=== PATIENT | female | born 1990 | race Caucasian/White ===

== ENCOUNTER 2017-11-28 14:55 | Inpatient (IN) | payer MEDICAID, OTHER, SELFPAY ==
[2017-11-28 16:41] LABS: BASO % 0.3 % (0.0-1.0); EOS % 0.5 % (0.0-3.0); HEMATOCRIT 32.1 % (36.0-47.0); HEMOGLOBIN 10.7 g/dl (12.0-15.5); IMMATURE GRANULOCYTE % 4.9 % (0-3.0); LYMPH # 0.7 10^3/uL (1.5-6.5); LYMPH % 16.6 % (24.0-44.0); MEAN CORPUSCULAR HGB CONC 33.3 g/dl (32.0-36.5); MEAN CORPUSCULAR VOLUME 101.9 fl (80.0-96.0); MONO % 24.8 % (0.0-5.0); NEUTROPHILS # 2.1 10^3/uL (1.8-7.7); NEUTROPHILS % 52.9 % (36.0-66.0); PLATELET COUNT, AUTOMATED 151 10^3/uL (150-450); RED BLOOD COUNT 3.15 10^6/uL (4.00-5.40); WHITE BLOOD COUNT 3.9 10^3/uL (4.0-10.0)
[2017-11-28 16:52] LABS: INR 1.18; PARTIAL THROMBOPLASTIN TIME 40.5 SECONDS (25.4-37.6); PROTHROMBIN TIME 15.2 SECONDS (12.1-14.4)
[2017-11-28 16:54] LABS: ALKALINE PHOSPHATASE 73 U/L (45-117); ALT/SGPT 14 U/L (12-78); AMYLASE 21 U/L (25-115); ANION GAP 11 MEQ/L (8-16); AST/SGOT 15 U/L (7-37); BILIRUBIN,DIRECT 0.2 MG/DL (0.0-0.2); BILIRUBIN,TOTAL 0.6 MG/DL (0.2-1.0); BLOOD UREA NITROGEN 11 MG/DL (7-18); CALCIUM LEVEL 8.2 MG/DL (8.5-10.1); CARBON DIOXIDE LEVEL 23 MEQ/L (21-32); CHLORIDE LEVEL 98 MEQ/L (98-107); CREATININE FOR GFR 0.82 MG/DL (0.55-1.30); GLOMERULAR FILTRATION RATE > 60.0 (>60); GLUCOSE, FASTING 102 MG/DL (70-100); LIPASE 84 U/L (73-393); POTASSIUM SERUM 3.2 MEQ/L (3.5-5.1); SODIUM LEVEL 132 MEQ/L (136-145)
[2017-11-28] MEDS: NS 1,000 ML IV ×2 (17:07→18:13)
[2017-11-28] MEDS ORDERED: ISOVUE-370 76% 100ML VIAL (Q9967) As Ordered (17:08)
[2017-11-28] MEDS: ACETAMINOPHEN TAB 650MG DOSE (2X325MG) PO (17:08)
[2017-11-28 17:42] LABS: LACTIC ACID SEPSIS PROTOCOL 1.5 MMOL/L (0.4-2.0)
[2017-11-28 18:00] LABS: KETONE, URINE AUTO RFX 1+ mg/dL (NEGATIVE); MUCUS, URINE RFX SMALL (NEGATIVE); RBC, URINE AUTO RFX 9 /HPF (0-3); SPECIFIC GRAVITY UR AUTO RFX 1.005 (1.002-1.035); SQUAM EPITHELIAL CELL UR AURFX 2 /HPF (0-6)
[2017-11-28 18:01] LABS: LEUKOCYTE ESTERASE UR AUTO RFX 3+ (NEGATIVE); NITRITE, URINE AUTO RFX POSITIVE (NEGATIVE); WBC, URINE AUTO RFX 46 /HPF (0-3)
[2017-11-28] MEDS: ONDANSETRON 4MG/2ML VIAL (J2405) IV (18:13)
[2017-11-28] MEDS: POTASSIUM CHLORIDE 10 MEQ SR TABLET PO (18:17)
[2017-11-28] MEDS: cefTRIAXone SOD 1 GM in D5W MINI-BAG PLUS 50 ML IV (18:25)
[2017-11-28] MEDS: KETOROLAC 30 MG/ML VIAL (J1885) IV (21:00)
[2017-11-29] MEDS: ACETAMINOPHEN TAB 650MG DOSE (2X325MG) PO ×3 (03:37→20:06)
[2017-11-29] MEDS: NS 1,000 ML IV ×6 (04:49→22:52)
[2017-11-29 06:47] LABS: HEMATOCRIT 25.4 % (36.0-47.0); MEAN CORPUSCULAR HEMOGLOBIN 34.1 pg (27.0-33.0); MEAN CORPUSCULAR HGB CONC 33.1 g/dl (32.0-36.5); MEAN CORPUSCULAR VOLUME 103.3 fl (80.0-96.0); PLATELET COUNT, AUTOMATED 105 10^3/uL (150-450); RED BLOOD COUNT 2.46 10^6/uL (4.00-5.40); RED CELL DISTRIBUTION WIDTH 14.1 % (11.5-14.5); WHITE BLOOD COUNT 2.4 10^3/uL (4.0-10.0)
[2017-11-29 06:59] LABS: POS COUNT POS FLAG; POSITIVE MORPH POS FLAG
[2017-11-29 07:02] LABS: ADD MANUAL DIFFER YES; DIFF SLIDE NUMBER 66; HEMOGLOBIN 8.4 g/dl (12.0-15.5)
[2017-11-29 07:15] LABS: ANION GAP 7 MEQ/L (8-16); BLOOD UREA NITROGEN 8 MG/DL (7-18); CALCIUM LEVEL 6.9 MG/DL (8.5-10.1); CARBON DIOXIDE LEVEL 22 MEQ/L (21-32); CHLORIDE LEVEL 108 MEQ/L (98-107); CREATININE FOR GFR 0.67 MG/DL (0.55-1.30); GLOMERULAR FILTRATION RATE > 60.0 (>60); GLUCOSE, FASTING 119 MG/DL (70-100); POTASSIUM SERUM 3.5 MEQ/L (3.5-5.1); SODIUM LEVEL 137 MEQ/L (136-145)
[2017-11-29 07:49] LABS: ANISOCYTOSIS 1+; ATYPICAL LYMPH 2 % (0-5); BANDS 5 % (< 11); LYMPHOCYTES 29 % (16-52); MONOCYTES 1 % (0-8); MYELOCYTES 1 % (0-0); NEUTROPHILS 62 % (35-75); PLATELET ESTIMATE DECREASED (NORMAL)
[2017-11-29 08:45] LABS: RETIC HEMOGLOBIN EQUIVALENT 28.6 pg (24-36); RETICULOCYTE # 21.7 10^9/L (17-77); RETICULOCYTE % 0.9 % (0.5-1.5)
[2017-11-29 08:52] LABS: ESTIMATED AVERAGE GLUCOSE 91 MG/DL (60-110); HEMOGLOBIN A1c 4.8 %
[2017-11-29 09:02] LABS: FERRITIN 230 NG/ML (8-252); IRON (FE) 6 UG/DL (50-170); PERCENT SATURATION 4.1 % (13.2-45.0); TOTAL IRON BINDING CAPACITY 147 UG/DL (250-450)
[2017-11-29] MEDS: PIPERACILLIN/TAZOBACTAM SOD 3.375 GM in D5W MINI-BAG PLUS 50 ML IV ×3 (09:03→20:07)
[2017-11-29] MEDS: TAMSULOSIN 0.4 MG CAP PO (09:03)
[2017-11-29] MEDS: ENOXAPARIN 40 MG/0.4 ML SYRINGE (J1650) SC (09:03)
[2017-11-29] MEDS: PHENAZOPYRIDINE 100 MG TAB PO ×3 (09:03→20:06)
[2017-11-29 09:13] LABS: CONTROL LINE HCG INT CTR LINE PRESENT; HCG, SERUM QUALITATIVE NEGATIVE (NEGATIVE)
[2017-11-29] MEDS: FERROUS SULFATE 325MG TAB PO ×2 (12:18→20:06)
[2017-11-29 13:48] LABS: HEMATOCRIT 26.1 % (36.0-47.0); HEMOGLOBIN 8.4 g/dl (12.0-15.5); MEAN CORPUSCULAR HEMOGLOBIN 33.7 pg (27.0-33.0); MEAN CORPUSCULAR HGB CONC 32.2 g/dl (32.0-36.5); MEAN CORPUSCULAR VOLUME 104.8 fl (80.0-96.0); PLATELET COUNT, AUTOMATED 104 10^3/uL (150-450); RED BLOOD COUNT 2.49 10^6/uL (4.00-5.40); RED CELL DISTRIBUTION WIDTH 14.3 % (11.5-14.5); WHITE BLOOD COUNT 2.8 10^3/uL (4.0-10.0)
[2017-11-29 13:54] LABS: ADD MANUAL DIFFER YES; DIFF SLIDE NUMBER 93; POS COUNT POS FLAG; POSITIVE MORPH POS FLAG
[2017-11-29 14:17] LABS: ATYPICAL LYMPH 2 % (0-5); BANDS 5 % (< 11); LYMPHOCYTES 39 % (16-52); METAMYELOCYTES 1 % (0-0); MONOCYTES 17 % (0-8); NEUTROPHILS 36 % (35-75); PLATELET ESTIMATE DECREASED (NORMAL)
[2017-11-29 14:18] LABS: ANION GAP 9 MEQ/L (8-16); BLOOD UREA NITROGEN 5 MG/DL (7-18); CARBON DIOXIDE LEVEL 23 MEQ/L (21-32); CHLORIDE LEVEL 106 MEQ/L (98-107); CREATININE FOR GFR 0.75 MG/DL (0.55-1.30); GLOMERULAR FILTRATION RATE > 60.0 (>60); GLUCOSE, FASTING 132 MG/DL (70-100); POTASSIUM SERUM 3.9 MEQ/L (3.5-5.1); SODIUM LEVEL 138 MEQ/L (136-145)
[2017-11-29 14:19] LABS: POLYCHROMASIA 1+
[2017-11-29] MEDS ORDERED: cefTRIAXone SOD 1 GM in D5W MINI-BAG PLUS 50 ML IV (18:00)
[2017-11-30] MEDS: PIPERACILLIN/TAZOBACTAM SOD 3.375 GM in D5W MINI-BAG PLUS 50 ML IV ×4 (02:29→20:39)
[2017-11-30] MEDS: NS 1,000 ML IV ×4 (04:39→20:39)
[2017-11-30] MEDS: ACETAMINOPHEN TAB 650MG DOSE (2X325MG) PO ×2 (06:57→15:39)
[2017-11-30 07:19] LABS: HEMATOCRIT 23.4 % (36.0-47.0); HEMOGLOBIN 7.7 g/dl (12.0-15.5); IMMATURE GRANULOCYTE % 0.8 % (0-3.0); LYMPH # 1.1 10^3/uL (1.5-6.5); LYMPH % 44.4 % (24.0-44.0); MEAN CORPUSCULAR HEMOGLOBIN 33.2 pg (27.0-33.0); MEAN CORPUSCULAR HGB CONC 32.9 g/dl (32.0-36.5); MEAN CORPUSCULAR VOLUME 100.9 fl (80.0-96.0); MONO # 0.6 10^3/uL (0.0-0.8); MONO % 24.3 % (0.0-5.0); NEUTROPHILS % 30.5 % (36.0-66.0); PLATELET COUNT, AUTOMATED 100 10^3/uL (150-450); RED BLOOD COUNT 2.32 10^6/uL (4.00-5.40); RED CELL DISTRIBUTION WIDTH 14.1 % (11.5-14.5); WHITE BLOOD COUNT 2.4 10^3/uL (4.0-10.0)
[2017-11-30 07:44] LABS: NEUTROPHILS # 0.7 10^3/uL (1.8-7.7); POSITIVE DIFF POS FLAG
[2017-11-30 07:46] LABS: ANION GAP 7 MEQ/L (8-16); BLOOD UREA NITROGEN 2 MG/DL (7-18); CALCIUM LEVEL 7.4 MG/DL (8.5-10.1); CARBON DIOXIDE LEVEL 23 MEQ/L (21-32); CHLORIDE LEVEL 109 MEQ/L (98-107); CREATININE FOR GFR 0.57 MG/DL (0.55-1.30); GLOMERULAR FILTRATION RATE > 60.0 (>60); GLUCOSE, FASTING 93 MG/DL (70-100); SODIUM LEVEL 139 MEQ/L (136-145)
[2017-11-30 08:28] LABS: IONIZED CALCIUM 4.1 MG/DL (4.5-5.3)
[2017-11-30] MEDS: POTASSIUM CHLORIDE 10 MEQ SR TABLET PO ×2 (09:22→12:12)
[2017-11-30] MEDS: FERROUS SULFATE 325MG TAB PO ×2 (09:23→20:39)
[2017-11-30] MEDS: ENOXAPARIN 40 MG/0.4 ML SYRINGE (J1650) SC (09:23)
[2017-11-30] MEDS: PHENAZOPYRIDINE 100 MG TAB PO ×3 (09:23→20:39)
[2017-11-30] MEDS: TAMSULOSIN 0.4 MG CAP PO (09:34)
[2017-11-30 10:59] LABS: FOLATE 11.9 NG/ML (>5.4)
[2017-12-01] MEDS: PIPERACILLIN/TAZOBACTAM SOD 3.375 GM in D5W MINI-BAG PLUS 50 ML IV (02:38)
[2017-12-01] MEDS: NS 1,000 ML IV ×4 (02:38→22:41)
[2017-12-01 07:12] LABS: HEMATOCRIT 23.9 % (36.0-47.0); HEMOGLOBIN 7.6 g/dl (12.0-15.5); MEAN CORPUSCULAR HEMOGLOBIN 33.8 pg (27.0-33.0); MEAN CORPUSCULAR HGB CONC 31.8 g/dl (32.0-36.5); MEAN CORPUSCULAR VOLUME 106.2 fl (80.0-96.0); PLATELET COUNT, AUTOMATED 105 10^3/uL (150-450); RED BLOOD COUNT 2.25 10^6/uL (4.00-5.40); RED CELL DISTRIBUTION WIDTH 14.5 % (11.5-14.5); WHITE BLOOD COUNT 2.3 10^3/uL (4.0-10.0)
[2017-12-01 07:13] LABS: ADD MANUAL DIFFER YES; DIFF SLIDE NUMBER 39; POSITIVE DIFF POS FLAG; POSITIVE MORPH POS FLAG
[2017-12-01 07:36] LABS: ANION GAP 5 MEQ/L (8-16); BLOOD UREA NITROGEN 3 MG/DL (7-18); C REACTIVE PROTEIN QUANTITATIV 9.46 MG/DL (0.00-0.30); CALCIUM LEVEL 7.6 MG/DL (8.5-10.1); CARBON DIOXIDE LEVEL 25 MEQ/L (21-32); CHLORIDE LEVEL 112 MEQ/L (98-107); CREATININE FOR GFR 0.55 MG/DL (0.55-1.30); GLOMERULAR FILTRATION RATE > 60.0 (>60); GLUCOSE, FASTING 88 MG/DL (70-100); POTASSIUM SERUM 3.7 MEQ/L (3.5-5.1); SODIUM LEVEL 142 MEQ/L (136-145)
[2017-12-01 07:49] LABS: HYPOCHROMASIA 2+; LYMPHOCYTES 57 % (16-52); MONOCYTES 6 % (0-8); NEUTROPHILS 37 % (35-75); PLATELET ESTIMATE NORMAL (NORMAL)
[2017-12-01] MEDS: LevoFLOXacin IV 500 MG in APPROPRIATE DILUENT 1 EA IV (08:00)
[2017-12-01 08:17] LABS: HAPTOGLOBIN 321 mg/dL (34-200)
[2017-12-01] MEDS: ENOXAPARIN 40 MG/0.4 ML SYRINGE (J1650) SC (08:25)
[2017-12-01] MEDS: FERROUS SULFATE 325MG TAB PO ×2 (08:25→21:27)
[2017-12-01] MEDS: MULTIVITAMINS/MINERALS THERAP 1 TAB PO (08:25)
[2017-12-01] MEDS: TAMSULOSIN 0.4 MG CAP PO (08:25)
[2017-12-01] MEDS: ACETAMINOPHEN TAB 650MG DOSE (2X325MG) PO ×3 (08:31→22:40)
[2017-12-01] MEDS: cefTRIAXone SOD 2 GM in D5W MINI-BAG PLUS 50 ML IV (09:04)
[2017-12-01 09:28] LABS: RETIC HEMOGLOBIN EQUIVALENT 28.7 pg (24-36); RETICULOCYTE # 7.8 10^9/L (17-77); RETICULOCYTE % 0.3 % (0.5-1.5)
[2017-12-01 09:29] LABS: REASON FOR REVIEW RBC MORPHOLOGY; SOURCE PERIPHERAL SMEAR
[2017-12-01 09:56] LABS: SLIDE REVIEW Report
[2017-12-01] MEDS: ASCORBIC ACID 250 MG TAB PO ×2 (09:59→21:28)
[2017-12-01 12:17] LABS: HEMATOCRIT 23.9 % (36.0-47.0)
[2017-12-01 13:59] LABS: IMMEDIATE SPIN CROSSMATCH 1 1
[2017-12-01 14:11] LABS: PRETREATED FOLATE FOR RBCFOL 15.3 NG/ML; RBC FOLATE 1344.4 NG/ML (280-791)
[2017-12-02] MEDS: NS 1,000 ML IV (03:44)
[2017-12-02 07:54] LABS: BASO % 0.3 % (0.0-1.0); HEMATOCRIT 28.5 % (36.0-47.0); HEMOGLOBIN 9.1 g/dl (12.0-15.5); IMMATURE GRANULOCYTE % 0.3 % (0-3.0); LYMPH # 1.6 10^3/uL (1.5-6.5); LYMPH % 55.9 % (24.0-44.0); MEAN CORPUSCULAR HEMOGLOBIN 31.9 pg (27.0-33.0); MEAN CORPUSCULAR HGB CONC 31.9 g/dl (32.0-36.5); MONO # 0.4 10^3/uL (0.0-0.8); MONO % 12.2 % (0.0-5.0); NEUTROPHILS % 31.3 % (36.0-66.0); PLATELET COUNT, AUTOMATED 115 10^3/uL (150-450); RED BLOOD COUNT 2.85 10^6/uL (4.00-5.40); RED CELL DISTRIBUTION WIDTH 18.7 % (11.5-14.5); WHITE BLOOD COUNT 2.9 10^3/uL (4.0-10.0)
[2017-12-02 07:59] LABS: ANION GAP 7 MEQ/L (8-16); BLOOD UREA NITROGEN 4 MG/DL (7-18); C REACTIVE PROTEIN QUANTITATIV 5.81 MG/DL (0.00-0.30); CALCIUM LEVEL 7.5 MG/DL (8.5-10.1); CARBON DIOXIDE LEVEL 25 MEQ/L (21-32); CHLORIDE LEVEL 111 MEQ/L (98-107); CREATININE FOR GFR 0.55 MG/DL (0.55-1.30); GLOMERULAR FILTRATION RATE > 60.0 (>60); GLUCOSE, FASTING 81 MG/DL (70-100); POTASSIUM SERUM 3.7 MEQ/L (3.5-5.1); SODIUM LEVEL 143 MEQ/L (136-145)
[2017-12-02 08:15] LABS: NEUTROPHILS # 0.9 10^3/uL (1.8-7.7); POSITIVE DIFF POS FLAG; POSITIVE MORPH POS FLAG
[2017-12-02] MEDS: MULTIVITAMINS/MINERALS THERAP 1 TAB PO (08:50)
[2017-12-02] MEDS: FERROUS SULFATE 325MG TAB PO ×2 (08:50→19:52)
[2017-12-02] MEDS: TAMSULOSIN 0.4 MG CAP PO (08:50)
[2017-12-02] MEDS: ENOXAPARIN 40 MG/0.4 ML SYRINGE (J1650) SC (08:51)
[2017-12-02] MEDS ORDERED: BENZONATATE 100 MG CAP PO (09:30)
[2017-12-02] MEDS: cefTRIAXone SOD 2 GM in D5W MINI-BAG PLUS 50 ML IV (09:42)
[2017-12-02] MEDS: ONDANSETRON 4MG/2ML VIAL (J2405) IV (09:54)
[2017-12-02] MEDS: ASCORBIC ACID 250 MG TAB PO ×2 (10:52→19:52)
[2017-12-02] MEDS: ACETAMINOPHEN TAB 650MG DOSE (2X325MG) PO (12:55)
[2017-12-02] MEDS: SLF 3 ML SYR IV ×2 (12:55→19:52)
[2017-12-03] MEDS: ACETAMINOPHEN TAB 650MG DOSE (2X325MG) PO (05:42)
[2017-12-03] MEDS: SLF 3 ML SYR IV ×2 (05:43→08:47)
[2017-12-03 07:28] LABS: HEMATOCRIT 33.2 % (36.0-47.0); MEAN CORPUSCULAR HEMOGLOBIN 32.3 pg (27.0-33.0); MEAN CORPUSCULAR HGB CONC 33.1 g/dl (32.0-36.5); MEAN CORPUSCULAR VOLUME 97.4 fl (80.0-96.0); PLATELET COUNT, AUTOMATED 165 10^3/uL (150-450); RED BLOOD COUNT 3.41 10^6/uL (4.00-5.40); WHITE BLOOD COUNT 3.4 10^3/uL (4.0-10.0)
[2017-12-03 07:34] LABS: POSITIVE MORPH POS FLAG
[2017-12-03 07:35] LABS: ADD MANUAL DIFFER YES; DIFF SLIDE NUMBER 27
[2017-12-03 07:57] LABS: ANION GAP 5 MEQ/L (8-16); BLOOD UREA NITROGEN 9 MG/DL (7-18); C REACTIVE PROTEIN QUANTITATIV 4.11 MG/DL (0.00-0.30); CALCIUM LEVEL 8.6 MG/DL (8.5-10.1); CARBON DIOXIDE LEVEL 30 MEQ/L (21-32); CHLORIDE LEVEL 104 MEQ/L (98-107); CREATININE FOR GFR 0.71 MG/DL (0.55-1.30); GLOMERULAR FILTRATION RATE > 60.0 (>60); GLUCOSE, FASTING 91 MG/DL (70-100); POTASSIUM SERUM 3.7 MEQ/L (3.5-5.1); SODIUM LEVEL 139 MEQ/L (136-145)
[2017-12-03 08:04] LABS: ATYPICAL LYMPH 3 % (0-5); BASOPHILS 1 % (0-4); LYMPHOCYTES 32 % (16-52); MONOCYTES 14 % (0-8); NEUTROPHILS 50 % (35-75); PLATELET ESTIMATE NORMAL (NORMAL)
[2017-12-03 08:06] LABS: ANISOCYTOSIS 2+
[2017-12-03] MEDS: ENOXAPARIN 40 MG/0.4 ML SYRINGE (J1650) SC (08:43)
[2017-12-03] MEDS: ASCORBIC ACID 250 MG TAB PO (08:44)
[2017-12-03] MEDS: TAMSULOSIN 0.4 MG CAP PO (08:44)
[2017-12-03] MEDS: FERROUS SULFATE 325MG TAB PO (08:44)
[2017-12-03] MEDS: MULTIVITAMINS/MINERALS THERAP 1 TAB PO (08:44)
[2017-12-03] MEDS: CEFDINIR 300 MG CAP (OMNICEF) PO (08:44)
[2017-12-03] MEDS: ONDANSETRON 4MG/2ML VIAL (J2405) IV (08:46)
== END 2017-12-03 10:40 | disposition home or self-care (01) | DRG 720 ==
LOC: M ED 14:55 → M ED INP 22:36 → M PED 23:35
PROC: 30233N1 Transfusion of Nonautologous Red Blood Cells into Peripheral Vein, Percutaneous Approach (ICD-10-PCS; principal; 2017-12-01)
DX: A41.9 Sepsis, unspecified organism (principal); D61.9 Aplastic anemia, unspecified; N10 Acute pyelonephritis; D53.9 Nutritional anemia, unspecified; Z79.899 Other long term (current) drug therapy; F17.210 Nicotine dependence, cigarettes, uncomplicated; B96.29 Other Escherichia coli [E. coli] as the cause of diseases classified elsewhere

== ENCOUNTER 2020-04-16 09:07 | Emergency (ER) | payer MEDICAID, OTHER ==
[~2020-04-16] VITALS: Ht 162.6 cm; Wt 52.3 kg
[~2020-04-16 09:07] MED LIST: ASCO250T20 PO; CALC500T61 PO; CEFD300CAP PO; CENTCHW4 PO; FERR1TAB8 PO; REME45TA PO; VITMTA PO
--- OUTSIDE RECORDS SUMMARY | 2020-04-16 09:13 | CCD ---
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 Unavailable Unavailable Ciara Dumont LMSW Unavailable Unavail able Ciara Dumont TANKROOM TENDER Unavailable Unavail able Lima, Huong Unavailable Unavailable Lima, Huong Unavailable Unavailable Lima, Huong Unavailable Unavailable Lima, Huong Unavailable Unavailable Lima, Huong Unavailable Unavailable Alberto, Tavia Unavailable Unavailable Alberto, Tavia Unavailable Unavailable Alberto, Tavia Unavailable Unavailable Alberto, Tavia Unavailable Unavailable ACHUFUSI, G JAIME Unavailable Unavailable Yancy, Alessandra Unavailable Unavailable Yancy, Alessandra Unavailable Unavailable Yancy, Alessandra Unavailable Unavailable Yancy, Alessandra Unavailable Unavailable Yancy, Alessandra Unavailable Unavailable Yancy, Alessandra Unavailable Unavailable MIRANDA MESA MD Unavailable Unavailable MIRANDA MESA MD Unavailable Unavailable MIRANDA MESA MD Unavailable Unavailable MIRANDA MESA MD Unavailable Unavailable MIRANDA MESA MD Unavailable Unavailable MIRANDA MESA MD Unavailable Unavailable MIRANDA MESA MD Unavailable Unavailable MIRANDA MESA MD Unavailable Unavailable MIRANDA MESA MD Unavailable Unavailable MIRANDA MESA MD Unavailable Unavailable MIRANDA MESA MD Unavailable Unavailable MIRANDA MESA MD Unavailable Unavailable MIRANDA MESA MD Unavailable Unavailable MIRANDA MESA MD Unavailable Unavailable MIRANDA MESA MD Unavailable Unavailable MIRANDA MESA MD Unavailable Unavailable MIRANDA MESA MD Unavailable Unavailable MIRANDA MESA MD Unavailable Unavailable MIRANDA MESA MD Unavailable Unavailable MIRANDA MESA MD Unavailable Unavailable MIRANDA MESA MD Unavailable Unavailable MIRANDA MESA MD Unavailable Unavailable MIRANDA MESA MD Unavailable Unavailable MIRANDA MESA MD Unavailable Unavailable MIRANDA MESA MD Unavailable Unavailable MIRANDA MESA MD Unavailable Unavailable MIRANDA MESA MD Unavailable Unavailable MIRANDA MESA MD Unavailable Unavailable MIRANDA MESA MD Unavailable Unavailable MIRANDA MESA MD Unavailable Unavailable MIRANDA MESA MD Unavailable Unavailable MIRANDA MESA MD Unavailable Unavailable MIRANDA MESA MD Unavailable Unavailable MIRANDA MESA MD Unavailable Unavailable MIRANDA MESA MD Unavailable Unavailable MIRANDA MESA MD Unavailable Unavailable MIRANDA MESA MD Unavailable Unavailable MIRANDA MESA MD Unavailable Unavailable MIRANDA MESA MD Unavailable Unavailable MIRANDA MESA MD Unavailable Unavailable MIRANDA MESA MD Unavailable Unavailable MIRANDA MESA MD Unavailable Unavailable MIRANDA MESA MD Unavailable Unavailable MIRANDA MESA MD Unavailable Unavailable MIRANDA MESA MD Unavailable Unavailable MIRANDA MESA MD Unavailable Unavailable MIRANDA MESA MD Unavailable Unavailable MIRANDA MESA MD Unavailable Unavailable MIRANDA MESA MD Unavailable Unavailable MIRANDA MESA MD Unavailable Unavailable MIRANDA MESA MD Unavailable Unavailable MIRANDA MESA MD Unavailable Unavailable MIRANDA MESA MD Unavailable Unavailable MIRANDA MESA MD Unavailable Unavailable MIRANDA MESA MD Unavailable Unavailable MIRANDA MESA MD Unavailable Unavailable MIRANDA MESA MD Unavailable Unavailable MIRANDA MESA MD Unavailable Unavailable MIRANDA MESA MD Unavailable Unavailable MIRANDA MESA MD Unavailable Unavailable MIRANDA MESA MD Unavailable Unavailable MIRANDA MESA MD Unavailable Unavailable MIRANDA MESA MD Unavailable Unavailable MIRANDA MESA MD Unavailable Unavailable MIRANDA MESA MD Unavailable Unavailable MIRANDA MESA MD Unavailable Unavailable MIRANDA MESA MD Unavailable Unavailable MIRANDA MESA MD Unavailable Unavailable MIRANDA MESA MD Unavailable Unavailable MIRANDA MESA MD Unavailable Unavailable MIRANDA MESA MD Unavailable Unavailable MIRANDA MESA MD Unavailable Unavailable MIRANDA MESA MD Unavailable Unavailable MIRANDA MESA MD Unavailable Unavailable MIRANDA MESA MD Unavailable Unavailable MIRANDA MESA MD Unavailable Unavailable MIRANDA MESA MD Unavailable Unavailable MIRANDA MESA MD Unavailable Unavailable MIRANDA MESA MD Unavailable Unavailable MIRANDA MESA MD Unavailable Unavailable MIRANDA MESA MD Unavailable Unavailable MIRANDA MESA MD Unavailable Unavailable MIRANDA MESA MD Unavailable Unavailable MIRANDA MESA MD Unavailable Unavailable GRECA, TRICIARIT . Unavailable Unavailable Eleonora LOZANO Unavailable Unavailable CONRAD JORGENSEN Unavailable Unavailable Rico VELAZQUEZ MD Unavailable Unavailable Rico VELAZQUEZ MD Unavailable Unavailable Rico VELAZQUEZ MD Unavailable Unavailable Rico VELAZQUEZ MD Unavailable Unavailable Rico VELAZQUEZ MD Unavailable Unavailable Rico VELAZQUEZ MD Unavailable Unavailable Rico VELAZQUEZ MD Unavailable Unavailable Rico VELAZQUEZ MD Unavailable Unavailable Rico VELAZQUEZ MD Unavailable Unavailable Rico VELAZQUEZ MD Unavailable Unavailable Rico VELAZQUEZ MD Unavailable Unavailable Rico VELAZQUEZ MD Unavailable Unavailable Rico VELAZQUEZ MD Unavailable Unavailable Rico VELAZQUEZ MD Unavailable Unavailable Rico VELAZQUEZ MD Unavailable Unavailable Rico VELAZQUEZ MD Unavailable Unavailable Rico VELAZQUEZ MD Unavailable Unavailable Rico VELAZQUEZ MD Unavailable Unavailable Rico VELAZQUEZ MD Unavailable Unavailable Rico VELAZQUEZ MD Unavailable Unavailable Rico VELAZQUEZ MD Unavailable Unavailable Rico VELAZQUEZ MD Unavailable Unavailable Rico VELAZQUEZ MD Unavailable Unavailable Rico VELAZQUEZ MD Unavailable Unavailable Rico VELAZQUEZ MD Unavailable Unavailable Rico VELAZQUEZ MD Unavailable Unavailable Rico VELAZQUEZ MD Unavailable Unavailable Rico VELAZQUEZ MD Unavailable Unavailable Rico VELAZQUEZ MD Unavailable Unavailable Rico VELAZQUEZ MD Unavailable Unavailable Rico VELAZQUEZ MD Unavailable Unavailable Rico VELAZQUEZ MD Unavailable Unavailable Rico VELAZQUEZ MD Unavailable Unavailable Rico VELAZQUEZ MD Unavailable Unavailable Rico VELAZQUEZ MD Unavailable Unavailable Rico VELAZQUEZ MD Unavailable Unavailable Rico VELAZQUEZ MD Unavailable Unavailable Rico VELAZQUEZ MD Unavailable Unavailable Rico VELAZQUEZ MD Unavailable Unavailable Rico VELAZQUEZ MD Unavailable Unavailable Rico VELAZQUEZ MD Unavailable Unavailable Rico VELAZQUEZ MD Unavailable Unavailable Rico VELAZQUEZ MD Unavailable Unavailable Rico VELAZQUEZ MD Unavailable Unavailable Rico VELAZQUEZ MD Unavailable Unavailable Rico VELAZQUEZ MD Unavailable Unavailable Rico VELAZQUEZ MD Unavailable Unavailable Rico VELAZQUEZ MD Unavailable Unavailable Rico VELAZQUEZ MD Unavailable Unavailable Rico VELAZQUEZ MD Unavailable Unavailable Rico VELAZQUEZ MD Unavailable Unavailable Rico VELAZQUEZ MD Unavailable Unavailable Rico VELAZQUEZ MD Unavailable Unavailable Rico VELAZQUEZ MD Unavailable Unavailable Rico VELAZQUEZ MD Unavailable Unavailable MARCIN MUHAMMAD Unavailable Unavailable JoaquiniesByron christianson Cali Unavailable Unavailable PoiesByron christianson Cali Unavailable Unavailable PoiesByron christianson Cali Unavailable Unavailable PoiesByron christianson Cali Unavailable Unavailable PoiesByron christianson Cali Unavailable Unavailable Poiesmeghan J Cali Unavailable Unavailable Poiesz J Cali Unavailable Unavailable Poiesz J Cali Unavailable Unavailable Poiesz J Cali Unavailable Unavailable Poiesz J Cali Unavailable Unavailable Poiesmeghan J Cali Unavailable Unavailable Poiesz J Cali Unavailable Unavailable Poiesz, J Cali Unavailable Unavailable Poiesz, J Cali Unavailable Unavailable Poiesz, J Cali Unavailable Unavailable Poiesz, J Cali Unavailable Unavailable Poiesz, J Cali Unavailable Unavailable Poiesz, J Cali Unavailable Unavailable Poiesz, J Cali Unavailable Unavailable Poiesz, J Cali Unavailable Unavailable Poiesz, J Cali Unavailable Unavailable Poiesz, J Cali Unavailable Unavailable Poiesz, J Cali Unavailable Unavailable Poiesz, J Cali Unavailable Unavailable Poiesz, J Cali Unavailable Unavailable Poiesz, J Cali Unavailable Unavailable Poiesz, J Cali Unavailable Unavailable Poiesz, J Cali Unavailable Unavailable Poiesz, J Cali Unavailable Unavailable Poiesz, J Cali Unavailable Unavailable Poiesz, J Cali Unavailable Unavailable Poiesz, J Cali Unavailable Unavailable Poiesz, J Cali Unavailable Unavailable Poiesz, J Cali Unavailable Unavailable Poiesz, J Cali Unavailable Unavailable Poiesz, J Cali Unavailable Unavailable Poiesz, J Cali Unavailable Unavailable Poiesz, J Cali Unavailable Unavailable Poiesz, J Cali Unavailable Unavailable Poiesz, J Cali Unavailable Unavailable Poiesz, J Cali Unavailable Unavailable Poiesz, J Cali Unavailable Unavailable Poiesz, J Cali Unavailable Unavailable Poiesz, J Cali Unavailable Unavailable Poiesz, J Cali Unavailable Unavailable Poiesz, J Cali Unavailable Unavailable Poiesz, J Cali Unavailable Unavailable Poiesz, J Cali Unavailable Unavailable Re-disclosure Warning The records that you are about to access may contain information from federally-assisted alcohol or drug abuse programs. If such information is present, then the following federally mandated warning applies: This information has been disclosed to you from records protected by federal confidentiality rules (42 CFR part 2). The federal rules prohibit you from making any further disclosure of this information unless further disclosure is expressly permitted by the written consent of the person to whom it pertains or as otherwise permitted by 42 CFR part 2. A general authorization for the release of medical or other information is NOT sufficient for this purpose. The Federal rules restrict any use of the information to criminally investigate or prosecute any alcohol or drug abuse patient.The records that you are about to access may contain highly sensitive health information, the redisclosure of which is protected by Article 27-F of the [facility] Public Health law. If you continue you may have access to information: Regarding HIV / AIDS; Provided by facilities licensed or operated by the [facility] Office of Mental Health; or Provided by the [facility] Office for People With Developmental Disabilities. If such information is present, then the following [facility] mandated warning applies: This information has been disclosed to you from confidential records which are protected by state law. State law prohibits you from making any further disclosure of this information without the specific written consent of the person to whom it pertains, or as otherwise permitted by law. Any unauthorized further disclosure in violation of state law may result in a fine or mcc sentence or both. A general authorization for the release of medical or other information is NOT sufficient authorization for further disc losure. Allergies and Adverse Reactions Type Description Substance Reaction Status Data Source(s ) Drug Class NO KNOWN ALLERGIES NO KNOWN ALLERGIES [facility] Family History Family Member Name Family Member Gender Family Member Status Date o f Status Description Data Source(s) Unknown Unknown Problem [facility] ([facility] Encounters Encounter Providers Location Date Indications Data Source(s ) Outpatient Attender: DARIO MESA MD 05/08/2020 12:00:00 A M [facility] Outpatient Attender: JOSEPH LOZANO 12/12/2019 12:00:00 AM E [facility] Outpatient Attender: JOSEPH LOZANO 11/17/2019 12:00:00 AM E [facility] Outpatient Attender: DARIO MESA MD 11/15/2019 12:00:00 A M [facility] Emergency [id number] 11/10/2019 08:30:00 AM EDT - 020 09:03:00 AM EDT [facility] Patient discharged. Outpatient Attender: DARIO MESA MDReferrer: DARIO MESA MD 10/25/2019 01:43:40 PM EDT Pain in left hip [facility] Pain in left hip Outpatient Attender: DARIO MESA MD [id number] 2019 12:00:00 AM EDT - 10/25/2019 12:00:01 PM EDT Pain in left hip [facility] Pain in left hip Outpatient Attender: LESVIA VELAZQUEZ MDReferrer: LESVIA CASTELLANOS MD 09/20/2019 12:00:00 AM EDT [facility] Outpatient Attender: Huong Sharma: MARCIN MUHAMMAD [id number] 09/16/2019 12:00:00 AM EDT - 09/16/2019 04:26:16 PM EDT Aplastic anemia, unspecified [facility] Aplastic anemia, unspecified Outpatient Attender: DARIO MESA MD 09/13/2019 12:00:00 A M EDT [facility] Outpatient Attender: DARIO MESA MDReferrer: Huong Lima 09/13/2019 12:00:00 AM [facility] Outpatient Attender: Alessandra Haines 08/18/2019 12:00:00 AM ED [facility] Outpatient Attender: Cherry Dumont LMSW [id number] 08/12/2019 10:43:21 AM [facility] Outpatient Attender: Tavia Alberto [id number] 020 12:00:00 AM EDT - 08/11/2019 10:09:52 AM EDT Allergic rhinitis, unspecified [facility] Allergic rhinitis, unspecified Outpatient Attender: CONRAD JORGENSEN [id number] 06/24 12:00:00 AM EDT - 07/21/2019 12:00:00 AM EDT Unspecified abdominal pain [facility] Unspecified abdominal pain Outpatient Attender: CONRAD JORGENSEN [id number] 05/26 12:00:00 AM EDT - 06/23/2019 02:57:29 PM EDT Allergy, unspecified, subsequent encounter [facility] Allergy, unspecified, subsequent encount er Outpatient Attender: JAIME Ivyender: EDDIE HARDIN . 05/11/2019 12:00:00 AM T [facility] Outpatient 05/11/2019 12:00:00 AM [facility] Outpatient Attender: MILAGRO LOPEZ . [id number] 10/2019 12:00:00 AM EDT - 05/02/2019 04:10:51 PM EDT Impacted cerumen, bilateral [facility] Impacted cerumen, bilateral Outpatient Attender: Huong Lima [id number] 03/29/2019 12:00:00 AM EST - 03/29/2019 05:00:45 PM [facility] Outpatient Attender: Cali Monahan 03/24/2019 12:00:00 AM [facility] Outpatient Attender: DARIO MOSHE MDReferrer: Huong Lima 03/09/2019 12:00:00 AM [facility] Immunizations Vaccine Date Status Description Data Source(s) pneumococcal polysaccharide PPV23 09/16/2019 12:00:00 AM EDT com pleted Pneumococcal Polysaccharide PPV23 09/16/2019 [facility] Medications Medication Brand Name Start Date Product Form Dose Route Admi nistrative Instructions Pharmacy Instructions Status Indications Reaction Description Data Source(s) Acetic Acid 20 MG/ML Otic Solution acetic acid (VOSOL) 2 % otic solution acetic acid (VOSOL) 2 % otic solution 11/10/2019 12:00:00 AM EDT 4 [drp] active Administer 4 drops into both ear s 4 (four) times a day [facility] 24 HR Fexofenadine hydrochloride 180 MG / Pseudoephedrine Hydrochloride 240 MG Extended Release Oral Tablet Fexofenadine-Pseudoephed ER 180-240 MG Tablet Extended Release 24 Hour (Cl[facility]) Fexofenadine- Pseudoephed ER 180-240 MG Tablet Extended Release 24 Hour ([facility] Cong[facility]) 09/16/2019 12:00:00 AM EDT 1 {tbl} Oral a ctive Allergic rhinitis, unspecified seasonality, unspecified triggerSeasonal allergies Take 1 tablet by mouth daily [facility] Allergic rhinitis, unspecified seasonali ty, unspecified trigger Seasonal allergies Mirtazapine 45 MG Oral Tablet Mirtazapine 45 MG Oral T ablet (REMERON) Mirtazapine 45 MG Oral Tablet (REMERON) 09/16/2019 12:00:00 AM EDT 45 mg Oral active MAGDA (generalized anx iety disorder)Depression, unspecified depression type Take 1 tablet by mouth nightly [facility] MAGDA (generalized anxiety disorder) Depression, unspecified depression type Albuterol Sulfate HFA 108 (90 Base) MCG/ ACT Inhalation Aerosol Solution (PROVENTIL HFA) 1766-9964-64 09/16/2019 12:00:00 AM EDT 2 {puff} Inha lation active Allergic rhinitis, unspecifi ed seasonality, unspecified triggerSeasonal allergies Inhale 2 puffs into the lung s every 4 (four) hours as needed for Shortness of Breath [facility] Allergic rhinitis, unspecified seasonali ty, unspecified trigger Seasonal allergies Folic Acid 1 MG Oral Tablet Folic Acid 1 MG Oral Table t (FOLVITE) Folic Acid 1 MG Oral Tablet (FOLVITE) 09/16/2019 12:00:00 AM EDT 1 mg Oral active Fatigue, unspecified typeMacrocytic anemia Take 1 tablet by mouth daily [facility] Fatigue, unspecified type Macrocytic anemia Multivitamins Oral Capsule [id number] 09/16/2019 12:00:00 AM EDT 1 {capsule} Oral active Fatigue, unspecified type Take 1 capsule by mouth daily [facility] Fatigue, unspecified type ferrous sulfate 325 MG Oral Tablet Ferrous Sulfate 325 (65 Fe) MG Oral Tablet Ferrous Sulfate 325 (65 Fe) MG Oral Tablet 09/16/2019 12:00:00 AM EDT 325 mg Oral active Aplastic anemia Take 1 tablet by mouth Two Times Daily [facility] Aplastic anemia 12 HR cetirizine hydrochloride 5 MG / Ps eudoephedrine Hydrochloride 120 MG Extended Release Oral Tablet Cetirizine-Pseudoephedrine ER 5-120 MG Tablet Extended Release 12 Hour (ZyrTEC-[facility] Allergy & Congestion) Cetirizine- Pseudoephedrine ER 5-120 MG Tablet Extended Release 12 Hour (ZyrTEC-D Allergy & Congestion) 08/12/2019 12:00:00 AM EDT 1 {tbl} Oral a ctive Allergic rhinitis, unspecified seasonality, unspecified trigger Take 1 tablet by mouth Two Times Daily [facility] Allergic rhinitis, unspecified seasonali ty, unspecified trigger 24 HR Nicotine 0.875 MG/HR Transdermal P atch Nicotine 21 MG/24HR Transdermal Patch 24 Hour (NICODERM CQ) Nicotine 21 MG/24HR Transdermal Patch 24 Hour (NICODERM CQ) 08/11/2019 12:00:00 AM EDT 1 {patch} Transdermal active Encounter for smoking cessation counseling Place 1 pat ch onto the skin every 24 (twenty-four) hours [facility] Encounter for smoking cessation counseli ng Azelastine HCl 0.1 % Nasal Solution (ASTELIN) [address]-0 08/11/2019 12:00:00 AM EDT 1 {spray} Nasal active Allergic r hinitis, unspecified seasonality, unspecified triggerSeasonal allergies 1 spray by Nasal route Two Times Daily Use in each nostril as directed [facility] Allergic rhinitis, unspecified seasonali ty, unspecified trigger Seasonal allergies Albuterol Sulfate HFA 108 (90 Base) MCG/ ACT Inhalation Aerosol Solution (PROVENTIL HFA) 7243-8449-76 08/11/2019 12:00:00 AM EDT 2 {puff} Inha lation aborted Allergic rhinitis, unspecifi ed seasonality, unspecified triggerSeasonal allergies Inhale 2 puffs into the lung s every 4 (four) hours as needed for Shortness of Breath [facility] Allergic rhinitis, unspecified seasonali ty, unspecified trigger Seasonal allergies 24 HR Fexofenadine hydrochloride 180 MG / Pseudoephedrine Hydrochloride 240 MG Extended Release Oral Tablet Fexofenadine-Pseudoephed ER 180-240 MG Tablet Extended Release 24 Hour ([facility]) Fexofenadine- Pseudoephed ER 180-240 MG Tablet Extended Release 24 Hour ([facility] Allergy [facility] Congestion) 08/11/2019 12:00:00 AM EDT 1 {tbl} Oral a borted Allergic rhinitis, unspecified seasonality, unspecified triggerSeasonal allergies Take 1 tablet by mouth daily [facility] Allergic rhinitis, unspecified seasonali ty, unspecified trigger Seasonal allergies Levofloxacin 500 MG Oral Tablet levoFLOXacin 500 MG Or al Tablet (LEVAQUIN) levoFLOXacin 500 MG Oral Tablet (LEVAQUIN) 07/20/2019 12:00:00 AM EDT 750 mg Oral active Take 1.5 tablets by mouth daily for 7 days [facility] carbamide peroxide 65 MG/ML Otic Solutio n Carbamide Peroxide 6.5 % Otic Solution (DEBROX) Carbamide Peroxide 6.5 % Otic Solution (DEBROX) 2019 12:00:00 AM EDT 5 [drp] Both Ears active Bilateral impacted cer umen Place 5 drops into both ears Two Times Daily for 7 days [facility] Bilateral impacted cerumen Loratadine 10 MG Oral Tablet Loratadine 10 MG Oral Tab let (CLARITIN) Loratadine 10 MG Oral Tablet (CLARITIN) 05/02/2019 12:00:00 AM EDT 10 mg Oral aborted Seasonal allergies Take 1 tablet by mouth daily [facility] Seasonal allergies Mirtazapine 45 MG Oral Tablet Mirtazapine 45 MG Oral T ablet (REMERON) Mirtazapine 45 MG Oral Tablet (REMERON) 03/29/2019 12:00:00 AM EST 45 mg Oral aborted Depression, unspecified depression type Take 1 tablet by mouth nightly [facility] Depression, unspecified depression type Multivitamins Oral Capsule [id number] 03/29/2019 12:00:00 AM EST 1 {capsule} Oral aborted Fatigue, unspecified type Take 1 capsule by mouth daily [facility] Fatigue, unspecified type Loratadine 10 MG Oral Tablet Loratadine 10 MG Oral Tab let (CLARITIN) Loratadine 10 MG Oral Tablet (CLARITIN) 03/29/2019 12:00:00 AM EST 10 mg Oral aborted Seasonal allergies Take 1 tablet by mouth daily [facility] Seasonal allergies Fluticasone Propionate 50 MCG/ACT Nasal Suspension (FLONASE) 9435-0728-24 03/29/2019 12:00:00 AM EST 1 {spray} Nasal aborted Sea malika allergies 1 spray by Nasal route daily [facility] Seasonal allergies Folic Acid 1 MG Oral Tablet Folic Acid 1 MG Oral Table t (FOLVITE) Folic Acid 1 MG Oral Tablet (FOLVITE) 03/29/2019 12:00:00 AM EST 1 mg Oral aborted Macrocytic anemia Take 1 tablet by mouth daily [facility] Macrocytic anemia Mirtazapine 45 MG Oral Tablet Mirtazapine 45 MG Oral T ablet (REMERON) Mirtazapine 45 MG Oral Tablet (REMERON) 01/31/2019 12:00:00 AM EST 45 mg Oral aborted Depression, unspecified depression type Take 1 tablet by mouth nightly [facility] Depression, unspecified depression type Multiple Vitamin (MULTIVITAMIN) capsule [id number] 11/13/19 19 12:00:00 AM EDT 1 {capsule} Oral aborted Fatigue, unspecified type Take 1 capsule by mouth daily [facility] Fatigue, unspecified type Loratadine 10 MG Oral Tablet loratadine (CLARITIN) 10 MG tablet loratadine (CLARITIN) 10 MG tablet 11/12/2018 12:00:00 AM EDT 10 mg Oral aborted Seasonal allergies Take 1 tablet by mouth daily [facility] Seasonal allergies fluticasone (FLONASE) 50 MCG/ACT nasal spray 5738-7536-09 11/12/2018 12:00:00 AM EDT 1 {spray} Nasal aborted Seasonal allergies 1 spray by Nasal route daily [facility] Seasonal allergies Hydrocortisone 5 MG/ML Topical Cream hydrocortisone 0. 5 % cream hydrocortisone 0.5 % cream 04/27/2018 12:00:00 AM EST Topical a ctive Irritant contact dermatitis due to other agents Apply topically Two Nathaniel es Daily Apply to rash for 2 weeks on, 1 week off [facility] Irritant contact dermatitis due to other agents ferrous sulfate 325 MG Oral Tablet ferrous sulfate 325 (65 FE) MG tablet ferrous sulfate 325 (65 FE) MG tablet 12/02/2017 12:00:00 AM EDT 1 {tbl} Or al aborted Take 1 tablet by mouth Two Times Daily [facility] FOLIC ACID PO Oral aborted Take by mouth [facility] Insurance Providers Payer name Policy type / Coverage type Policy ID Covered alliance party ID Covered alliance party's relationship to arriaza Policy Arriaza Plan Information EMEDNY [id number] SP [id number] [facility] I [id number] Self [id number] [facility] MEDICAID [id number] Lizeth [id number] [facility] MEDICAID [id number] DENTAL [facility] COMMUNITY PLAN I [id number] Self [id number] MEDICAID M [id number] Self [id number] [facility] I [id number] Self [id number] MEDICAID M [id number] Self [id number] MEDICAID M [id number] Self [id number] [facility] I [id number] Self [id number] SELF PAY [place] S MEDICAID M [id number] S [id number] SELF PAY [facility] COMMUNITY PLAN [id number] SP [id number] SELF PAY [facility] COMMUNITY PLAN [id number] SP [id number] MEDICAID M [id number] Self [id number] MEDICAID GME [id number] S [id number] [facility] HEA [id number] S [id number] [facility] MEDICAID [facility] [id number] Lizeth [id number] [facility] MEDICAID PI PI MEDICAID [id number] SP [id number] PENDING [employer] INSURANCE [id number] SP [id number] SELF PAY ONLY [id number] SP [id number] COMMUNITY PLAN MCDHMO [id number] SP [id number] [facility] I [id number] Self [id number] [facility] I [id number] Self [id number] [facility] [facility] Health Maintenance Organization (HMO) [id number] Self [id number] [facility] COMMUNITY PLAN [id number] SP [id number] [facility] COMMUNITY PLAN [id number] SP [id number] MEDICAID ID STATE [id number] SP [id number] MEDICAID [id number] Self [id number] [facility] I [id number] Self [id number] SELF PAY UNAVAILABLE SP UNAVAILA BLE MEDICAID GME W [id number] S [id number] [facility] COMM PLAN BS W [id number] S [id number] TOTAL CARE W [id number] S [id number] [facility] COMM PLAN SB W [id number] S [id number] MEDICAID [facility] [id number] SP BW [id number] MEDICAID [facility] [id number] SP BW [id number] BLUE MEDICAID [id number] SP [id number] [facility] MEDICAID [id number] SP [id number] MEDICAID ID STATE [id number] SP [id number] Problems, Conditions, and Diagnoses Code Display Name Description Problem Type Effective Dates Data Source(s) H60.503 Unspecified acute noninfective otitis ex terna, bilateral Unspecified acute noninfective otitis ex Diagnosis 11/10/2019 08:34:09 AM EDT [facility] G89.29 Other chronic pain Other chronic pain Diagnosis 02/2019 12:19:07 PM EDT [facility] M25.552 Pain in left hip Pain in left hip Diagnosis 10/25/2019 12 :19:07 PM EDT [facility] J30.9 Allergic rhinitis, unspecified Allergic rhinitis, unsp ecified Diagnosis 09/16/2019 03:00:35 PM EDT [facility] Z71.6 Tobacco abuse counseling Tobacco abuse counseling Diag nosis 08/11/2019 08:37:10 AM EDT [facility] I95.1 Orthostatic hypotension Orthostatic hypotension Diagno sis 07/20/2019 08:25:13 AM EDT [facility] R10.9 Unspecified abdominal pain Unspecified abdominal pain Diagnosis 07/20/2019 08:25:13 AM EDT [facility] T78.40XD Allergy, unspecified, subsequent encount er Allergy, unspecified, subsequent encounter Diagnosis 06/23/2019 12:26:13 PM EDT [facility] H61.23 Impacted cerumen, bilateral Impacted cerumen, bilatera l Diagnosis 05/02/2019 02:47:14 PM EDT [facility] D53.9 Nutritional anemia, unspecified Nutritional anemia, un specified Diagnosis 03/29/2019 05:30:07 PM [facility] J30.2 Other seasonal allergic rhinitis Other seasonal allergic rhinitis Diagnosis 03/29/2019 05:30:03 PM [facility] R53.83 Other fatigue Other fatigue Diagnosis 03/29/2019 05:30:00 PM [facility] Surgeries/Procedures Procedure Description Date Indications Data Source(s) XR HIPS- BILAT, 2 VIEWS 57091 XR HIPS- BILAT, 2 VIEWS 50357 R outine 10/25/2019 12:47 PM EDT Chronic left hip pain 10/25/2019 12:47:36 PM EDT Chronic left hi p pain [facility] Chronic left hip pain BLOOD COUNT COMPLETE AUTO&AUTO DIFRNTL WBC COUNT CBC AND DIFFER ENTIAL Routine 07/20/2019 10:17 AM EDT Orthostatic hypotension 07/20/2019 02:17:00 PM EDT Orthostatic h [facility] Orthostatic hypotension BASIC METABOLIC PANEL CALCIUM TOTAL BASIC METABOLIC PANEL Routi ne 07/20/2019 10:17 AM EDT Orthostatic hypotension 07/20/2019 02:17:00 PM EDT Orthostatic h [facility] Orthostatic hypotension CULTURE BCT ISOL&PRSMPTV ID ISOLATE EA URINE URINE CULTURE Ro utine 07/20/2019 9:59 AM EDT Flank pain 07/20/2019 01:59:00 PM [facility] DIP STICK/TABLET RGNT AUTO W/O MICROSCOPY POCT URINALYSIS Routine 07/20/2019 9:39 AM EDT 07/20/2019 01:39:00 PM EDT [facility] Results ID Date Data Source [id number] 11/11/2019 01:59:47 PM [facility] MR[facility] Name Date of Age Gend*PT [id number] Topher Silva 1990 29 years F EDPT Location Admission Date/Time Visit ID Attending [id number] 11/10/19 0834 --- --- EPI ID CSN Admitting Provider [id number] ---Attestation signed by Yaniv Casey MD at 11/11/2019 1:59 JOSE BARNETT Attestations:Attestation Type: Mid-Level: SUPERVISED APC: Based on the medical record thecare appears appropriateI was the attending physician on duty at the time the patient visited the ED .The patient was evaluated by the PA/GRAPHIC ENGINEER. I was personally available forconsultation; however, I did not see the patient nor participated in themedical decision making process of the encounter. The venessa ent wasdispositioned without my knowledge and I am administratively signing the chartafter the fact. -----Provider in Triage NotesNo notes on fileHistory of Present IllnessChief ComplaintPatient presents with Otalgia bilat ear pain x weeksThis is a pleasant 29-year-old female presents emerged part complaining ofbilateral ear drainage for 3 weeks. Patient states she is getting sometimesclear and sometimes light yellow drainage from both ears. She denies any painbut has had mild itching. She does have seasonal allergies and has a blooddisorder aplastic anemia. She has no immunosuppression. She denies any feveror chills. No sore throat. No neck stiffness or neck pain. Nolymphadenopathy. No headache. No changes in vision. No nasal discharge. Shestates she does sneeze and gets a runny nose chronically secondary to herallergies. She takes Zyrtec- D and Flonase. Denies chance of .Patient admits to cigarette smoking. Patient denies alcohol or drug abuse.Past medical, surgical, social, and family history reviewed. Family history isnoncontributory to this visit.HistoryPast Medical History:Diagnosis Date Aplastic anemiaPast Surgical History:Procedure Laterality Date SECTION, LOW TRANSVERSE TUBAL LIGATIONFamily HistoryProblem Relation Age of Onset Healthy, No Significant History MotherSocial HistoryTobacco Use Smoking status: Current Every Day Smoker Packs/day: 0.50 Types: CigarettesSubstance Use Topics Alcohol use: No Drug use: NoROSReview of SystemsConstitutional: Negative for chills and fever.HENT: Positive for ear discharge. Negative for congestion, dental problem,drooling, ear pain, hearing loss, nosebleeds, sinus pressure, sinus pain, sorethroat, tinnitus, trouble swallowing and voice change.Eyes: Negative for discharge, redness and itching.Respiratory: Negative for cough and shortness of breath.Cardiovascular: Negative for chest pain and palpitations.Gastrointestinal: Negative for abdominal pain, nausea and vomiting.Endocrine: Negative for polydipsia, polyphagia and polyuria.Genitourinary: Negative for dysuria and flank pain.Musculoskeletal: Negative for neck pain and neck stiffness.Skin: Negative for color change, rash and wound.Allergic/Immunologic: Negative for immunocompromised state.Neurological: Negative for dizziness, weakness, light-headedness and headaches.Hematological: Negative for adenopathy. Does not bruise/bleed easily.Physical ExamBP 132/90 (BP Location: Left upper arm, Patient Position: Sitting) | Pulse 101| Temp 98 F (Temporal) | Resp 16 | Ht 64" | Wt 51.7 kg | LMP 11/09/2019(Exact Date) | SpO2 98% | No | BMI 19.57 kg/m Physical ExamConstitutional: She is oriented to person, place, and time. She appearswell-developed and well-nourished. Non-toxic appearance. She does not have asickly appearance. She does not appear ill. No distress.Heart rate is 101. Vital signs are normal otherwise. Patient does not appearto be ill or toxic. Afebrile. No distress. Adequate peripheral perfusion.Cap refill less than 2 seconds.HENT:Head: Normocephalic and atraumatic. Head is without right periorbital erythemaand without left periorbital erythema.Right Ear: Tympanic membrane and external ear normal. There is drainage. Noswelling or tenderness. No foreign bodies. No mastoid tenderness. Tympanicmembrane is not injected and not perforated. No middle ear effusion. Nohemotympanum. No decreased hearing is noted.Left Ear: Tympanic membrane and external ear normal. There is drainage. Noswelling or tenderness. No foreign bodies. No mastoid tenderness. Tympanicmembrane is not injected and not perforated. No middle ear effusion. Nohemotympanum. No decreased hearing is noted.Nose: Nose normal.Mouth/Throat: Oropharynx is clear and moist. No oropharyngeal exudate.Patient has what appears to be serous discharge involving both external earcanals. There is no significant edema. Mild erythema and inflammation to thecanals himself. There is no pain with movement of the auricle or pressure overthe tragus. No pain with speculum examination. No mastoid tenderness. Noevidence of TM perforation. There is evidence of TM scarring bilaterallyEyes: Pupils are equal, round, and reactive to light. Conjunctivae and EOM arenormal. Right eye exhibits no discharge. Left eye exhibits no discharge. Noscleral icterus.Neck: Normal range of motion. Neck supple. No tracheal deviation present. Nothyromegaly present.Cardiovascular: Normal rate, regular rhythm, normal heart sounds and intactdistal pulses. Exam reveals no gallop and no friction rub.No murmur heard.Pulmonary/Chest: Effort normal and breath sounds normal. No stridor. Norespiratory distress. She has no wheezes. She has no rales. She exhibits notenderness.Abdominal: Soft. She exhibits no distension. There is no tenderness.Musculoskeletal: Normal range of motion.Lymphadenopathy: She has no cervical adenopathy.Neurological: She is alert and oriented to person, place, and time. No cranialnerve deficit. She exhibits normal muscle tone. Coordination normal.Skin: Skin is warm and dry. Capillary refill takes less than 2 seconds. She isnot diaphoretic. No erythema. No pallor.Psychiatric: She has a normal mood and affect. Her behavior is normal.Nursing note and vitals reviewed.ED CourseProceduresMDMNumber of Diagnoses or Management OptionsAcute otitis externa of both ears, unspecified type: new and does not requireworkupDiagnosis management comments: Given the serous discharge and the itching I amgoing to treat the patient with acetic acid eardrops. Prescription given for 4drops 4 times daily for 7 to 10 days. Patient was told to follow-up with herregular physician for reevaluation. Return and follow-up parameters discussed.Treatment plan discussed. Patient voices understanding. Patient was releasedin stable condition. Patient was in no distress, no pain. Discussed etiologiesof external otitis.All investigations and findings were discussed with the patient. Treatmentplan, follow-up plan, and return parameters were also discussed with thepatient. Discharge instructions were discussed as well. Patient understands andconcurs with the instructions. Patient was told to return to the ER immediatelyif any symptoms worsen or any other problems arise. Patient instructed tofollow up as directed.Risk of Complications, Morbidity, and/or MortalityPresenting problems: lowManagement options: lowPatient ProgressPatient progress: stableThis was electronically signed by MARIANA Hammond, 11/10/19 8:43 AM.MARIANA Hammond11/10/19 0849Yaniv Casey MD11/11/19 1359 Name Value Range Interpretation Code Description Data Shanon rce(s) Supporting Document(s) ID Date Data Source [id number] 11/03/2019 01:28:42 PM EDT [facility] Name Value Range Interpretation Code Description Data [facility](s) Supporting Document(s) Progress Note [facility] HTQNKv9eXbWLPdLn14/CMEvgEHPlz3CmDMsgLMz7YWwfVOQkY9NcEDS1lR0dKYY0ROjFHjKeFkAuYYAt [facility] [file] QSV5MGQyFOEqMch+EH4pZYl+We2It5GqrvP9nnMlBWdoWXOvXx4MOYDUH3MRIn== ID Date Data Source [id number] 11/02/2019 12:35:23 PM EDT [facility] Name Value Range Interpretation Code Description Data Shanon rce(s) Supporting Document(s) Progress Note [facility] FGLGZi6bUiYBRbEb29/APRskCAMrb8ZdQPgxRBp2NKxyWRMsO1RaUCC0bU7aPQO3RDcIGbPlAkJyPCJ9 lbm [file] Lead Painter+Pu0Z4DaQb+oNqVUvLtaFHNMSkumOR6796V75d9oSq9Dk1YEgGffFSFRuxwZNOopoQpsuaAF2On5 [file] V3UwMEPlXwYI1HCLc= ID Date Data Source [id number] 10/25/2019 01:43:40 PM EDT [facility] XR HIPS- BILAT, 2 VIEWS 68248GQEYC RESU LTInterpreted by:Silvio Glynn MDINDICATION: Left hip pain.TECHNIQUE: Frontal and frog-leg views of the bilateral hips were obtained.COMPARISON: None.FINDINGS: No acute fracture or dislocation. There is mild undercoverage of the bilateral femoral heads. The periarticular soft tissues appear unremarkable.IMPRESSION:1. No acute bony pathology.2. Mild undercoverage of the bilateral femoral heads suggestive of mild dysplastic changes.This document has been electronically signed by Silvio Glynn MD on 10/25/2019 1:41 PM Name Value Range Interpretation Code Description Data Shanon rce(s) Supporting Document(s) ID Date Data Source [id number] 10/26/2019 10:27:17 AM EDT [facility] Name Value Range Interpretation Code Description Data Shanon rce(s) Supporting Document(s) Nuclear Ab Pattern Homogenous [Titer] in Serum <80 [facility] Nuclear Ab pattern.speckled [Titer] in Serum 80 1/dil <80 H [facility] Nuclear Ab pattern.rim [Titer] in Serum <80 [facility] Nuclear Ab pattern.nucleolar [Titer] in Serum <80 [facility] ID Date Data Source [id number] 10/26/2019 03:01:06 PM EDT [facility] Name Value Range Interpretation Code Description Data Shanon rce(s) Supporting Document(s) Cyclic citrullinated peptide IgA+IgG Ab [Units/volume] in Serum or Plasma by Immunoassay 5 units 0[facility] NegativeNegative and indicates no CCP3an tibodies or levels below the negativecutoff of the assay.(NOTE)These results were obtained with the [employer] CCP3.1 IgG/IgAELISA. Anti-CCP values obtained with different fresco artist's assaymethods may not be interchangeable. The magnitude of the reported IgGor IgA levels cannot be correlated to an endpoint titer. ID Date Data Source [id number] 10/27/2019 01:45:13 PM [facility] Value Range Interpretation Code Description Data Shanon rce(s) Supporting Document(s) Sjogrens syndrome-A extractable nuclear Ab [Units/volume] in Serum by Immunofluorescence 5 [AU]/mL [address] [place] [address] Sjogrens syndrome-B extractable nuclear Ab [Units/volume] in Serum by Immunofluorescence 4 [AU]/mL [address] [place] [address] Torres extractable nuclear Ab [Units/volume] in Serum b y Immunofluorescence 11 [AU]/mL [address] [place] [address] Ribonucleoprotein extractable nuclear Ab [Units/volume] in Serum by Immunofluorescence 21 U/ML [address] [place] [address] SCL-70 extractable nuclear Ab [Units/volume] in Serum 7 [AU]/mL [address] [place] [address] Ana Luisa-1 extractable nuclear Ab [Units/volume] in Serum by Immunofluorescence 8 [AU]/mL [address] [place] [address] DNA double strand Ab [Units/volume] in Serum by Immunofluore scence 4 [IU]/mL [address] [place] [address] Centromere Ab [Units/volume] in Serum 9 [AU]/mL [address] [place] [address] Histone IgG Ab [Units/volume] in Serum 8 [AU]/mL [address] [place] [address] ID Date Data Source [id number]/25/2019 01:31:21 PM [facility] Value Range Interpretation Code Description Data Shanon rce(s) Supporting Document(s) Erythrocyte sedimentation rate 13 mm/hr <20 [facility] ID Date Data Source [id number]/25/2019 01:51:56 PM [facility] Value Range Interpretation Code Description Data Shanon rce(s) Supporting Document(s) C reactive protein [Mass/volume] in Serum or Plasma 9.6 mg/L <3.0 H [facility] (NOTE)CRPHS (mg/L) CVD risk <1.0 low 1.0- 3.0 average >3.0 high ID Date Data Source [id number] 10/25/2019 09:50:21 PM EDT [facility] Name Value Range Interpretation Code Description Data Shanon rce(s) Supporting Document(s) Rheumatoid factor [Units/volume] in Serum or Plasma <14 [facility] ID Date Data Source [id number] 09/19/2019 11:49:00 AM EDT [facility] Name Value Range Interpretation Code Description Data Shanon rce(s) Supporting Document(s) Progress Note [facility] OENFXr8iXmLYHuZi25/BPZmcOOKjy3JrBPrbMEe0VVnjFYWsH3SuTTA3gA3xHVM6NGuBZlAjXqGtXuD6 lbm [file] c/PxwHhzS87Cbq2c73IUru+t/NNeE1hBxXrPdZ/ [file] ENeKJz8f0qnQc3BYeqR+Me9nltu58EeJ5N6+Ip [file] 66atbkh7qiwrNTRkSu558Xb/u7j+vp organizational development/YC3kvVJvr+6+GX4Whwz6GD38I6twCoEt7bGV+757/qVR0+Jade [file] LmOiHaN8AmBrGnxnKsGfEC9APo4ZZfA7ZQY6pLIiAc9NKRWzRvMISqMyCY0MTGp= ID Date Data Source [id number] 09/16/2019 04:46:02 PM EDT [facility] Name Value Range Interpretation Code Description Data Shanon rce(s) Supporting Document(s) Progress Note [facility] KCVHEn6zEbOJUcSw54/SHAsvFTFnq8EeNYdtICf6KOzoNMLeU6BuBEE6qB9iDQM9PAjFAaCmJyCqLwX4 lbm [file] ICAgICAgICAgICAgICAgICAgICAgICAgICAgICAgICAgICAgICAgICAgICAgICAgICAgICAgICAgICAg JOJvHSFuQVYtIZVhCDHaQTPwNR3ACBYlGQCfLHDwKM AgICAgICAgICAgICAgICAgICAgICAgICAgICAgICAgICAgICAgICAgICAgICAgICAgICAgICAgICAgIC RcKRQxHDGpOROlQEBdHXCfSLRoLFTdCJOfNTPdUB4GBHVwTFFhRYPjGSTnIEAuDSHdPTFtHZHpTZJxML AgICAgICAgICAgICAgICAgICAgICAgICAgICAgICAg BAGzKTIuKMXvFTVoXORqQUSyMGGiXTDtCFPtAXIwYDLiJRQvNQObDV3AUOFxAMBbEQOjZYHiOGVzFNRo ICAgICAgICAgICAgICAgICAgICAgICAgICAgICAgICAgICAgICAgICAgICAgICAgICAgICAgICAgICAg DHAkJDYuLRDxRPIhLEYeUCFbQGWwGG0JATOpNKKoQW AgICAgICAgICAgICAgICAgICAgICAgICAgICAgICAgICAgICAgICAgICAgICAgICAgICAgICAgICAgIC DoLWGiDNPaWNNwNYFyKWDrXIWoPPArFDWoBLPhGVIvZB9QGNWoNPQaYTRqZPZjSUQbOLTeBINpZWXoBM AgICAgICAgICAgICAgICAgICAgICAgICAgICAgICAg WXGmNZHmPGBbGTAnKMXhFRPlNXYiSFSrPRAgYKXoWIRyFEZuONEaWIXuTN3QREVvGXJpSPKtGOKzGVPj ICAgICAgICAgICAgICAgICAgICAgICAgICAgICAgICAgICAgICAgICAgICAgICAgICAgICAgICAgICAg PUWhCKQsNRKrAYDoTENeMMVbGRWeAOGaSU0PGYOlKO AgICAgICAgICAgICAgICAgICAgICAgICAgICAgICAgICAgICAgICAgICAgICAgICAgICAgICAgICAgIC EdVTZrZYAlKIBfYHBoNEVqJSTyYAIwWBWwPETqZGZyRUSlMG0MZUKbDXSfSPDgEFLjLORrKSEpWVEdTE AgICAgICAgICAgICAgICAgICAgICAgICAgICAgICAg OVIwXOCnNSVcOGLoGQNbMIWoKVYmAOKbUPMhNRRcBMBsUUVaAKElAFWpEALjGN4VGXKpDKVgGENtSEXl ICAgICAgICAgICAgICAgICAgICAgICAgICAgICAgICAgICAgICAgICAgICAgICAgICAgICAgICAgICAg CDSaSXRvOWNxXCUmYMFfZDJtSVJiQNKjORGnBI9YKX 66tGLff8K3BBJuTZ2mgmx/Bn5TOJdxelVgeHArKO9ZIlSaAG3owm3UKiKeJS8tje1KPMvSIfMrB8U9eH PaCYYpHXDHMrExH17vBNeiXx32VZxhZLZuQlVsFIm7Yp2PFrCsI6cxPXIvNvO1CRLcKeV0PQOpZkJ6EP VwDcCvHJWqOGCfAFFuIXUMZLX7WYDiYiCtHYvvPD6K q6OrdAK1BWf+Ma3FKP4ki1EpDWujZhYeFI8klj1UEVyDChLwA4QiabG0OLEgLQCpAk8MSBYzJHZnnRIl KyBlYJGWUiVnH6PwhC40BXFTXt0+AYmyhvPqZbuLJgEiZHNtj1LqXDk5JA9EGWXbOUh0jQVzQGLkZ9Ex l2NtJl73OIRgWthcRvMzJE9jLXioKOMSHXDgnZQ3Uk Y1SxIdIgQjFLZ1CvJkCM1ePBpdMR5KULC5SHbdXLNdRYFhL2eQBoOhPIPfDuQcwRrpTH9IMdUqN9Ypue VudCAzMiAwIFINCj4+RLnlreRuOlcGDzJ4UMYoa4IzSJj7FM7JDQKrQKxqNZ9EJHWgqL1vLFawVI3TKb PxETYzKVPGMaKwL19jtSWwMUq9O2VhSsHsEMDbWztf ZXMgPDwvTmFtZXMgWyBdDQogID4+ID4+XQptKQ8IHQpyhgMzOXSmUp0BYOTkWEWrBL3lOHAaNUGsM5N9 oZgbQDERGnXjC9dteuqtCG6cDKIpS711zSfjovYwCLWlSYLlFn6RZKEcUZI1MXSzdPJlOjOvJYMJFJyh YK0BpYTjOQN2mY5jALytNGRzKIZuL4oVXdFqcSyrSU 51bGwgbnVsbCBdDQo+Zv5HEP6ip7IzAXh4crQpXRncYWL5UYmaUTVvNGWkSTSoLRL8RYO1CNRWIyLgYK XwTITjEQliBHAnXBSwxl6ULXYrLVRjQoSiJNHkXWBiIVWcCSfrCJDvDBK1PnuzQHYyEXBxVH2TUnAwRM EuIVJoMOhpNYZaXTJxth0SCBUdMOOrSAEoOfNjQPTq KYBoLXnsLUClNMA8TqZqVDDqNPWqCN6VXsWbNNPmJQz7HoOvJQXpLWCidg9XKOMdYATaEsq8BNEoQQEg QZTgQGtpWGWcFTJmJEr8WOOtULOkVZ1ULhAvKGPxAES1KwxqUXWpGUZfvp0UTJLdEICgEkRcRBPiKMIg UNOjGBazVHXyNXKqBwVlJWVjDBXiUY8YUhDgAOGiUP T2GRujPLWyLZSkfv2ZFXMxPWNmEbPvIGBeCKMaZAXhEMmwTKGqVLSoXJE6KEIrXUFxLW7AJnJaUACbHi DuMLJvRCAeCSBktc7CDTNpHGSpVOTfXRRrEGTsVYEsYSdgCEVtLGYoPKRiHWJxDPUrWR7YGwAnMYOfAu X3HLNgFACwOXUtns6HKLEnNJBaGfS2IuMgBJQzEVQt TVwfEEEzGMEvDoQ9MSPzWEApHW4BVxReAJAzEeA3GBSuFGCyKPBpbi4CIMJdNHKqYVQ3QtLoMWSxNRSl FEmrNADdZRY4Cas7MOYfKONsSU9GYuBsEXFoLdO5HCloVWMrGAUafg0EJJBmKNZtTQG0ZiNrYPJuRWRo LHriVUDlZTZ2KsHnCWUlJPDlQV1CCqMeAMKbQiUoAD ddXUDcWZPjph9AQCDfVITgCrNyGLNmPRZkUGYdUSlaAHXgZVY8LbYnJNRfTNPiII7WKuJjRJPlZjbjSs TbTFIeSLJtsm6QOMQqCANwCQZcIENsHDNaLKZeAUyqOMUrIMX3PVkvAAHnZRAtPV0MLxKdBYRgZeg1NK WhSDBrYJGhfi1ZlAQubJwkby6VXIrBIe9IbAlqGPP2 GTbbEu4csYDtDBVeXJIPHs7KpyJkZJQwVJPYSTywHAXwGDRaCAO6LoGnSyS4QWR4XFPiBGluIAR9QRAw VXBrTQCtLlB0DMHqUSz6DLTqLOveYvEtGVOvYYQ0IAk5EWAtXUFtGDX+LL8fCYx+Qr0Hc1TazyY1mjIg LJroUVd5MO6XSYXYC4UNUx== ID Date Data Source [id number] 08/12/2019 10:49:28 AM EDT [facility] Name Value Range Interpretation Code Description Data Shanon rce(s) Supporting Document(s) Progress Note [facility] EOUZUw0yCaMZAtDz99/RITplDGHan8VeSHuuTKw2AAuuFYSbM0UfLGW9oX2nUQE4OYqHZyJiCeHyDfK7 lbm [file] W7NoGaNT3JUf3CMkO2OIT3iOAqQm8QPxL9ZMfPDmPcUR0CWXa= ID Date Data Source [id number] 08/11/2019 04:59:55 PM EDT [facility] Name Value Range Interpretation Code Description Data Shanon rce(s) Supporting Document(s) Progress Note [facility] BINURw6fQlWSYqHj45/MYTgmISWkq2WnJLqiDAk0EEcjBJIaW5ToAOX5qY7fKEQ2IJeEWmBjFpPmSdY4 lbm [file] TesAi2b6i3HIHN7oDbn6/n5PGB1YNaL5OfYBYOP+hand booked folder and stitcher [file] ICAgICAgICAgICAgICAgICAgICAgICAgICAgICAgICAgICAgICAgICAgICAgICAgICAgICAgICAgICAg WOMlRACkJK6YPIIlYQRdAIAtXEZnBKArJPOvPTWhQK AgICAgICAgICAgICAgICAgICAgICAgICAgICAgICAgICAgICAgICAgICAgICAgICAgICAgICAgICAgIC RhXUTnKCPvKPEzBDAbBFBxCG2BOOWmBQImFXFoTVShEKLbAQFcPNRxVOEyUIWdNKQiMWIoFTZbQARgYA AgICAgICAgICAgICAgICAgICAgICAgICAgICAgICAg JPGbOGQrYOSmEFJyMOAgFPGnBOVcRTHaFGLeBL6JNVLaXCGtFKLmZQBiKBGgGPXjGWPcWUYsLCGnHTCz ICAgICAgICAgICAgICAgICAgICAgICAgICAgICAgICAgICAgICAgICAgICAgICAgICAgICAgICAgICAg NEDxNMIsIMIlMB8ZDIKfGQOeGTRxGCLuVHMdUSRxVP AgICAgICAgICAgICAgICAgICAgICAgICAgICAgICAgICAgICAgICAgICAgICAgICAgICAgICAgICAgIC KpPYLeMQZkRUPaOJNuLTUfZQMpJH4MXIXoUQXpDQDpNQEpWIFcJVPqFPEuDEHnITNiVEPhRVWpJSMsBH AgICAgICAgICAgICAgICAgICAgICAgICAgICAgICAg PVQySTMxMAVoFPYbAOZfCBOdWGUbRVCmFQBlVHTnHJ8HRIPdSWSjLCIgAGJjZRUmIMNlLPTqKERiKGUn ICAgICAgICAgICAgICAgICAgICAgICAgICAgICAgICAgICAgICAgICAgICAgICAgICAgICAgICAgICAg FXWaIPXgBXTbSPYpCR2XFDStKCJvMWXhHYLyPAIiIX AgICAgICAgICAgICAgICAgICAgICAgICAgICAgICAgICAgICAgICAgICAgICAgICAgICAgICAgICAgIC HjCNYbATInVTFkYIDlNWIgVZChZGFgMR7AMZLoPZZjZFAqIAMyPPLoSYXwBIIlMEAhTZHzUVSkJBVpWA AgICAgICAgICAgICAgICAgICAgICAgICAgICAgICAg HJQzXPZyPKXyVTJgQYQcYQCnSMPhCTCiQKReOSMsFTUvJJ8JURZpUYHyGSZsZSRzROMgVNXzWMPgNXTn ICAgICAgICAgICAgICAgICAgICAgICAgICAgICAgICAgICAgICAgICAgICAgICAgICAgICAgICAgICAg DQQeMAOkEJHdBRNbNBKmDG1WEI78wAQsm5N6DVUqKN 0ndyc/Hd6DUZeobnCqcFEyHR6XJtDqPT7gbs6UCuLfPY6cfk9FJYcMXmYlY4Z3iCVjBJTfPYNZDoWrM0 7kNTdbKn68YCoiZPRxPsYsKCg1Be0OFkXtI2fiIIPmExN5MGRrTcX7HEBiQuZ7GIBgYuXsRUAmGAPzRZ JoKFEHRBY4DHCbEoCdJwOnIMHjPZ1WWXDiK019gaDd We7BEb1CRfHvDP6yrn9PLwZhEYXbFzdSOpe0BCipTL3DhCKmqJQhUICkCHMQAoAeJ5lim3LmPhTcBYEA DKaoYN6Qn1EbdEVdVCp+Qw5NSL8nk5CkIYyfGEJxYD8lrg7RGXzVHrFhI5SvkHnqTMWoz5zjJVNsJI6n kJLbDDE6ZXQsr8PsdFDgZRRKqURoyUkioi2aNFIpDz 5rWD6wYQGxVNG2BjKoKZSHHP9CAFVzNDPvsMRsDVBlHYLEUK8YLXhwCVK3BBYbglKutESdDBkiPP0LHR JlbnQgMzQgMCBSDQo+Bz1PAY7uw6ZdRFsdKcBeRK0lia6IKKiSTzRgD8G8dSFkX4D8MArhEa7WWKRcKI BtIrXnQYRBKSjpAY3QOB3zogX8AX4ZnIMtSUMkALBv zCSmUNt6Y67jtZHpPNdcXD8TYLH+Lynette+Cd1UPHTrGGIkQHUgWbNqZOKMBeZaI8CsQ1ZGj7SlD6QzRM36 yNsjlsBqLIooSE7QPO5pABKsFKBULB5KnLIxiR2wgxLfHLMxCNDWRzPtI37jdVTiNZKcOKOgMMBpRo4Q BXGpL5VxzhApbHbmmbXpBETiRTHCIH6XZBeignTfoW AgnOnfOZ09vGhmPA2OYz5WFmMaFE6qsu9WiZGuMu3OTRAfBo4KAPMyWXHwUSRiRME5OBTqJmXyDDplAJ DnJHAmXYE2CXSmQAGlJW7RBrDqLEOkEqheMdztPHChXHTxaw0NNUHiRWGtBHx9BjLsKAZpWEFsUExjOE OvMHFtKXA5OCUyOBJnQU6PBsYoXATiNIR1WgOvDMBp GZXryy8VVYAiSEMhWrr0UOMsACUdYBRlBLqbELWhDBR4GZBvNFCcWNPjML8DHwAqKDHmPLp6MvbcLZHv UZFtjf3KVGHhCIWgQLYmBVPvKSYuNINsCJnsMHPaQKSmGFD9RXSnSMMfUA3PNpQrMVEeRUCaEiAqBRYc AHUxxx2SGNMfUXBsDoO0XcZnSOPpOSBfGHqnYLHqAT M9TQd4ZHKhMCAjJQ2HUzNfNMWaIOM7KTNgTRDtQAFmbm2NOWDyRDQtMVHrYyMdZCIoUUEaNIutIZZhKJ WoAMQ7LQGtTTVdNI4SRqGbAMImQjS7HVHtHVGtHJJpnk6USZPgVYWvRNb4MhYaLFXeQYSkOWnoBCUnXD TgSjY2PWNfAHMxAV7VAjVgWERuNkV6KMCkLEPuYFFl lm8WBCRzYRGgUxX0CnPcYBRsPIOcXFovOQXrUFN7RNO8FZFdTCTbYY0FHtNuOZWeZlJzTTwiBFHoAANi tr9PBPKlJDTnBSX1WfImWCKrKPDqWOlbGHIcDAZ1WBb6DPUoIPRtEU9CWyBdTRJqFgAdUFYfOTBiMITx rn2SSYWhOSWxAqAoSFOzFIXeEDQxWKquNJFsRAZ7Js IpZCVkZJJmUI3OCeGtTNEnSaX5HILgACEgHCQnum7XPEVtGPOyGqp7IJXmACFzNREeHSnvWELnHMU8SW U4GYGgUCWuRL5XFwEjXNTjYimePPRmYKPoCINrwz7GTRFjELOeIWJhHuJlIZKcOAMkUEfgUACzWYGtBN YrJBDdYOVnAX6SZgPvWTMnNEHrLSHsZUXqZJCicq0T IQUkVLG7UOCyEoKjERLtXPGkEHk9kcPrbPPaSZn8CW6UM1QjnmXjVkyOUl5Yx832TDB3IPZfAv9WU2nv Nf9mENZzETVNUr6JQAw9HoY8TEC8EZZnBhWaFHY1CRgvHdC6MEQ4IhQyLBBpKFb+VWkfJvObDBH2OwNr TyY4ZFnpFkGrOik4CGtgHYS7GOV4FD9sEPRZPk5+AMoyqOEkdQegBVLMZePkTLi1ZItiRYJFHx1X ID Date Data Source [id number] 07/22/2019 04:43:01 PM EDT [facility] Name Value Range Interpretation Code Description Data Shanon rce(s) Supporting Document(s) Progress Note [facility] QTOXHb0dZoPWGsYy52/CLNrwKUTag5DyQXeuDSr5BIhaBSSyE5FhYAX3dQ0cZNB7OXaLLfJfUxSzLJX9 lbm [file] xEqNYdq3ALIgiX2pl47mvYokMXAM6HrbJnMzxWGJkmaju1ZTE1IcRmhOsO8icarAeOGJKbDU1U+O/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 [file] ICAgICAgICAgICAgICAgICAgICAgICAgICAgICAgICAgICAgICAgICAgICAgICAgICAgICANCiAgICAg ICAgICAgICAgICAgICAgICAgICAgICAgICAgICAgIC AgICAgICAgICAgICAgICAgICAgICAgICAgICAgICAgICAgICAgICAgICAgICAgICAgICAgICAgICAgIC AgICANCiAgICAgICAgICAgICAgICAgICAgICAgICAgICAgICAgICAgICAgICAgICAgICAgICAgICAgIC AgICAgICAgICAgICAgICAgICAgICAgICAgICAgICAg ICAgICAgICAgICAgICANCiAgICAgICAgICAgICAgICAgICAgICAgICAgICAgICAgICAgICAgICAgICAg ICAgICAgICAgICAgICAgICAgICAgICAgICAgICAgICAgICAgICAgICAgICAgICAgICAgICAgICANCiAg ICAgICAgICAgICAgICAgICAgICAgICAgICAgICAgIC AgICAgICAgICAgICAgICAgICAgICAgICAgICAgICAgICAgICAgICAgICAgICAgICAgICAgICAgICAgIC AgICAgICANCiAgICAgICAgICAgICAgICAgICAgICAgICAgICAgICAgICAgICAgICAgICAgICAgICAgIC AgICAgICAgICAgICAgICAgICAgICAgICAgICAgICAg ICAgICAgICAgICAgICAgICANCiAgICAgICAgICAgICAgICAgICAgICAgICAgICAgICAgICAgICAgICAg ICAgICAgICAgICAgICAgICAgICAgICAgICAgICAgICAgICAgICAgICAgICAgICAgICAgICAgICAgICAN CiAgICAgICAgICAgICAgICAgICAgICAgICAgICAgIC AgICAgICAgICAgICAgICAgICAgICAgICAgICAgICAgICAgICAgICAgICAgICAgICAgICAgICAgICAgIC AgICAgICAgICANCiAgICAgICAgICAgICAgICAgICAgICAgICAgICAgICAgICAgICAgICAgICAgICAgIC AgICAgICAgICAgICAgICAgICAgICAgICAgICAgICAg ICAgICAgICAgICAgICAgICAgICANCiAgICAgICAgICAgICAgICAgICAgICAgICAgICAgICAgICAgICAg ICAgICAgICAgICAgICAgICAgICAgICAgICAgICAgICAgICAgICAgICAgICAgICAgICAgICAgICAgICAg ICANCjw/hJKjG5waoTEwoiJ1M2ttGj0LPn4MVM3qo8 GoDXRcIRsamcVwRypFDaBnQKQjAtdSJeq3TElvJR0TvQXnO5ZcR9IvYTcpUH7LQVUnNVKntTBnOCSdOR SiMhC1XIRfGDytWK1RgBRsKZvgSJXnNYZzFfXkJUVsBVBaORNnORUaYTOWJZXnFPZaKcGdJAKbGVCuLI 6RKHWgF426udCyKv7KPx1AEyFzMM2blc8OJyPbQGQl CfaNVfn4JKarFH1NfAWjsVEcTdIaKQHRVvFpJ6hhb0CyErDkOFIAZLltOG4Qi2NkxJYsFUk+Kh5TCA8e v1ArGYisOwMoKV3ils1KMFeLVkYmF1PydUaqLLIkp8ooLTHgOK9lqQFoSBH2JOJde7RiaXZyAGWJtWXb nOoiap7mNQNpQR8zHf6pILQhQLA3RyQjJGOPDD3WSK YkVSForIQlSZNnEWZEFJ7RFGstKMO1WNGqslRjvELaUGvaOB4QPMUxfzWuTxFcKULWXVc+Pa5NME4in3 GrPYulGITxJU0sev8XQZsPXfIsN1L3uCPhT3G1QDbxIz6OCVDbQPLnWrIrMGGMJYjrEG2AKD5lyrT4RL 7JuCIuADEvZXIngCKhZKo8O19avRDbBRmoRF7OLQC+ Lynette+Kn3WQZHyRMHxYXLhYgIbTZTABkIjQ2MrT0NOg6VmN7VwWL61fSwcjkObVSynXA3GDF6cKVZwXEBC GS0FbLCunN7blrNjWkSzMQETDlWnR84glJMbQAUpCHVoFOQdXu5GZOGnQ0NdfrMryUbtxsJjYMPaMWJN AG6BPDehglBbwOSlnEhdRX58gNvuPY0DMz3JFhMnXK 8ted8BwVXpXd4AOZAbDW2BOMQpQFNvYTJfGQE4CSAyIfPqHAwkNZAjYWUjBKS7KQPyOPOdZN6XKfCfFW XfZoYiTPGnSYDtTDNzfu6GWTTuTCKuMcvrYCCvPISrHWGqCKscSUOmAZZjJBH4MZTsKSXmTO9JNaYtDN SbFOGvFTTfNLBgBIMkoa3OHMAqHLLuAALqZuNrZAJa NGFjWGhxGYJgPVV5IzL8JILmKWBqJN8CDoZeKDMbYUu6JQklBCQcOPSmpa5LYXSrXICxQDmyQnLdFHQc TSBfFDubTSMkQUGbZBUuTHQhSPPwWC0OAeRgUOHiJBPgZMinLXJlEVTbmt2JXSXzMREfIkOxYKEaEHBp BHIcNKapFFXxMKO4FAR3ARUbZLIvEQ9OGbEvBBSpJG I8NLSzISSuZAMxkp8OQJWjQVWiQGFrLkGhYGWgTZBpQPdmLYIcDJP8KfNqHLYdICUoWG5LYbCyXOMmQd M6WOYpCAToYYVgdn9BEWHfKEGwFOi5BNSiDSVhRTBiHBczWAJeCIMsHYZpFIDoWTKxQY3NIaPtXWJbLm Z1BzLoUTIfRIYhaw8RGRLiZLZeApHdWwCjGHSxEVLu ZFofDAXdHHAmEuYdYTQtQUQmPM7IQuOaFNWxGuL9TWJwSVPdMRMjdg6YNYGfCKJhOWA4FuLoEJJlZCZz QEqoDMMgNWT1Cak5EKCdRDAtYI9HEkLxSXJrMnT4GnLuSVOoENUrrs0UVUYjSQJpOWY3INRhSHKgLGCd PEecNDZaXNS7CiZ6CGMiVUYjNX9OWcSaFVVaTdD9UR KeWNGfNTOikp7UDLFnKGScXOv5CHYxHNFqWHTgWPbaAXPkKCJ0Rol1EDQlHKHcND3MOnWpZWCyBkt9Gq idWQWnHSStau5SCNRbHZArYos1CYKmOANtBPGmCCnzJZBoIBC4ZVcgYADuXTToWC9QKuUjOSaaQHNHOz z6DWdiB9u6VIKeZQ0XZ3Lkl7XuIqTjEGISGGwaSC6c jzLtMLOcZj7BG3xFDjm1MnA8FWX1XbxoOQA7A4EuEyJ2INToEGP5JILyFfXjMe6qHIG5WEAqJLHbDrUh CVoqC0QhMFirYvX7WDPmH5IxOEF3FfCbTS7UKo8DSqN6NAY5eNWeZz5RIjtfBtHDMlQlKP3PUQq= ID Date Data Source [id number] 07/20/2019 02:26:01 PM EDT [facility] Name Value Range Interpretation Code Description Data Shanon rce(s) Supporting Document(s) Progress Note [facility] DSLVGs6aYoETBpLf59/ONQukLENfa8JyEBqhGQt6KEbhBLLeG9TtPGC5tY3qBDT4AKkHHzSmBdYaZTN9 lbm [file] SFB2NOW7XmV9ZNKsKEDiMKY+GT2zERb+Yv1Do8HvdxA1kqSbDDboFCA3WF5XCUFBB9HLFs== ID Date Data Source [id number] 07/20/2019 12:17:27 PM T [facility] Name Value Range Interpretation Code Description Data Shanon rce(s) Supporting Document(s) Leukocytes [#/volume] in Blood by Automated count 6.2 10*3/uL 4-10 [facility] Erythrocytes [#/volume] in Blood by Automated count 3.37 10*6/uL 4.1- 5.3 L [facility] Hemoglobin [Mass/volume] in Blood 11.8 g/dL 11.5-15.5 [facility] Hematocrit [Volume Fraction] of Blood by Automated count 34.6 % 3 6-45 L [facility] Erythrocyte mean corpuscular volume [Entitic volume] b y Automated count 102.7 fL 80-96 H [facility] Erythrocyte mean corpuscular hemoglobin [Entitic mass] by Automated count 35.1 pg 27-33 H [facility] Erythrocyte mean corpuscular hemoglobin concentration [Mass/volume] by Automated count 34.2 g/dL [facility].0-[facility] width [Ratio] by Automated count 14.2 % 11.5-14.5 [facility] Platelets [#/volume] in Blood by Automated count 188 10*3/uL 150-400 [facility] Differential cell count method - Blood [facility] Neutrophils/100 leukocytes in Blood by Automated count 60 % [facility] Lymphocytes/100 leukocytes in Blood by Automated count 27 % [facility] Monocytes/100 leukocytes in Blood by Automated count 12 % [facility] Eosinophils/100 leukocytes in Blood by Automated count 0 % [facility] Basophils/100 leukocytes in Blood by Automated count 1 % [facility] Neutrophils [#/volume] in Blood by Automated count 3.74 10*3/uL 1.8-7 .0 [facility] Lymphocytes [#/volume] in Blood by Automated count 1.63 10*3/uL 1.2-4 .0 [facility] Monocytes [#/volume] in Blood by Automated count 0.73 10*3/uL 0-0.8 [facility] Eosinophils [#/volume] in Blood by Automated count 0.01 10*3/uL 0-0.5 [facility] Basophils [#/volume] in Blood by Automated count 0.04 10*3/uL 0-0.2 [facility] Nucleated erythrocytes/100 leukocytes [Ratio] in Blood by Automated count 0 /100{WBCs} 0-0 [facility] ID Date Data Source [id number] [facility] Value [facility] Interpretation Code Description Data Shanon rce(s) Supporting Document(s) Bicarbonate [Moles/volume] in Serum 25 mmol/L 22-29 [facility] Chloride [Moles/volume] in Serum or Plasma 95 mmol/L 98-107 L [facility] Creatinine [Mass/volume] in Serum or Plasma 0.72 mg/dL 0.50-0.90 [facility] Glucose [Mass/volume] in Serum or Plasma 102 mg/dL 70-140 [facility] Potassium [Moles/volume] in Serum or Plasma 3.3 mmol/L 3.4-5.1 L [facility] Sodium [Moles/volume] in Serum or Plasma 136 mmol/L 136-145 [facility] Urea nitrogen [Mass/volume] in Serum or Plasma 15 mg/dL 6-20 [facility] Anion gap 3 in Serum or Plasma 15 mmol/L 8-15 [facility] Osmolality of Serum or Plasma by calculation 282 mosm/kg 275-300 [facility] Creatinine/Urea nitrogen [Mass Ratio] in Serum or Plasma 21 [facility] Calcium [Mass/volume] in Serum or Plasma 9.2 mg/dL 8.6-10.0 [facility] Glomerular filtration rate/1.73 sq M pre dicted among non-blacks [Volume Rate/Area] in Serum or Plasma by Creatinine-based formula (MDRD) >6 0 [facility] Glomerular filtration rate/1.73 sq M pre dicted among blacks [Volume Rate/Area] in Serum or Plasma by Creatinine-based formula (MDRD) >60 [facility] ID Date Data Source [id number] 07/23/2019 09:00:32 AM [facility] Service Cmnt XXX-Imp : NoneMicroorganism XXX Cult : Greater than 100,000 col/mlEscherichia coli Name Value Range Interpretation Code Description Data Shanon rce(s) Supporting Document(s) ID Date Data Source [id number] 07/20/2019 09:47:40 AM EDT [facility] Name Value Range Interpretation Code Description Data Shanon rce(s) Supporting Document(s) Color of Urine [facility] Clarity of Urine [facility] Glucose [Mass/volume] in Urine by Test strip Negative [facility] Bilirubin.total [Presence] in Urine by Test strip Negative [facility] Ketones [Mass/volume] in Urine by Test strip Negative A [facility] Specific gravity of Urine by Test strip 1.020 1.005-1.025 [facility] Hemoglobin [Presence] in Urine by Test strip Negative A [facility] pH of Urine by Test strip 6.5 5.0-8.0 [facility] Protein [Mass/volume] in Urine by Test strip 30 mg/dL Negative [facility] Urobilinogen [Units/volume] in Urine by Test strip 2.0 {Ehrlich_U}/ dL 0.2-1.0 H [facility] Nitrite [Presence] in Urine by Test strip Negative [facility] Leukocyte esterase [Presence] in Urine by Test strip Negat bacilio [facility] ID Date Data Source [id number] 06/23/2019 05:27:16 PM EDT [facility] Name Value Range Interpretation Code Description Data Shanon rce(s) Supporting Document(s) Progress Note [facility] XZONWh8cRtXWAiVh06/PFMkeVKBxo4QxCSbfKPf8BZzhNHOhD9JwCTI7iH0hRAV6VVzMBeVmBpGuAPYw lbm [file] ICAgICAgICAgICAgICAgICAgICAgICAgICAgICAgIC AgICAgICAgICAgICAgICAgICAgICAgICAgICAgICAgICAgICAgICAgICAgICAgICAgICAgICAgICAgIA 0KICAgICAgICAgICAgICAgICAgICAgICAgICAgICAgICAgICAgICAgICAgICAgICAgICAgICAgICAgIC AgICAgICAgICAgICAgICAgICAgICAgICAgICAgICAg GREjJIBbWPHqFV2NOIVcAGCtSCSfQJWxIPHoPXCnVNIeBBQzNFFdAUUbDFBmUFPxOYOeGGDkAOVeSHIa YQMaBRArZHWxCMKkGHAeVZTyACEmZRWmGNEpKOHwQQKyAQVxUHWnABAfSSMmELXfBVNoJW8WLIByKVNv ICAgICAgICAgICAgICAgICAgICAgICAgICAgICAgIC AgICAgICAgICAgICAgICAgICAgICAgICAgICAgICAgICAgICAgICAgICAgICAgICAgICAgICAgICAgIC FmHU8SQSGkOFHfBDDnONWtZKHdUDLzMRJxSBSxQYGbNATtYPNiXFVlWEMyGHLmESHqSIGyDMTnLJCmRV AgICAgICAgICAgICAgICAgICAgICAgICAgICAgICAg BARzCQEfPZSsFGYcOA8WYWRpFPDaREEoTJLvDNEpXYCmTQClGLOkLFBqEUWkSALhPGIcLBBnPMAgBUXy QFVcHGCjOSYhVXQpSEXhRTZpJBFdVUQkGWKiHXCaSCStTNOgWZTcAMPdJGWeUKKnRZMiGKYxEL7JONWv ICAgICAgICAgICAgICAgICAgICAgICAgICAgICAgIC AgICAgICAgICAgICAgICAgICAgICAgICAgICAgICAgICAgICAgICAgICAgICAgICAgICAgICAgICAgIC CvBOVmYP5GWXDiJTCfJPUiTCExDNOmJVOeVEYdMIIsJQYnSIHxXTHdTIWuBWFhLJKiUWXrLELcONToYB AgICAgICAgICAgICAgICAgICAgICAgICAgICAgICAg TQDyVYVzTSBmJYMtDKNhYR1YNGOfFHEcCUAbSASjHLUsNUIdMSLwGTMaANHcZOQbEYIgSOEdJWAcIIPq WXOgRWZfCCOfTLOoFOTtIUGtMWBsZUZeRRKlQJToTEWsXBGmFRUfVQOkRBAoGCRaQWLtYLHjJNOtXA3L ICAgICAgICAgICAgICAgICAgICAgICAgICAgICAgIC AgICAgICAgICAgICAgICAgICAgICAgICAgICAgICAgICAgICAgICAgICAgICAgICAgICAgICAgICAgIC OiZPTmILOgGZ7TRU10oNJoa3H9TNUgYP0aand/Gy7IHUcjceWmjSRcPA3RAnWfBB1evy0AAdSjFG8uui 5TXWgFTvYgR9H2uLUnHYMtFHQVRxVxT58eSXesXw80 PFycGJKcFfMdRHk3Ma5WVtWiD8isOEOdUhE3FALvZsG5LMViJcY0QSVmXgCzRJYpDEWtNLBoZLWDHC8P OfZfL8FyqE33OCJQYv3+UJhwnkKxPgcCMdVqJFQht3WtRBi4RK0VQJGhFzdxb0BnBfTtUQUVGSfkDP5E HBZ8PRPnMBBzHv8TEWTlR604bcDeRY0WLv9QPgHeJV 4grx5BYkPiIQKjJhnVRdy2BOciBG9LhYEaXIkBws8gvoXbjjLGp5YwtfQkgFSEzBM0DK3jjcNdJ08uRF 5jvcxxSRByUSRaYP2wHC6tUAIsQNNcTsYjKVVAOC0JHHNdEQLneXXuPQJvHOTAVO8SJJbrFJZ3DLPjsb YnbAPgWOzmQU8JPJJcieZtQmRdPZIPUIf+Kl0WAL2m y7MzQVcjCxYjBL2tlc4QVJgVNbEbT3Z9sPRcH4Z3DHgsXh4PXEAsDFPrBptiJQESAFofIW4UQF9fwiL8 RO0BeLDoCXXxECNtoZLrLRp7V38tiQLyIBgjPA8GUOX+Lynette+Sz3JPCIsXPKzXZZbOaVuVXCMAeXmX8Ca I4QLg4FrG8WdLJ16uGcpklQnUHcaQA7ALQ3aFCWgKT VTUN2GlCQirG3tdiHkBRItZZKIQbNrC44jeSWuHNReMXI1CRKkSz9RZIOmM8VpeaGbvIbvmmHzWCFfKJ AKBB3ZJZsujgKktUYdlQtzJF03hXsrPV5BAa2NUnVwNT9wqr0IdKEmFl3RVBNiWg3FIFMaMKUgHBQyPY G1UDWcHgPeGIqhNDJoJNDaQDN2ZSNtUEVbPB4ROsOu YOEfSbH5VhFsNFCdDHWeae4IHWCfVVSmCJTcXXJkQPRsOELuBPeiFCPjZHYzVPB2CIMnNVHsKR3PKvDe BZVpGXNuOkEgWARqOHEwsp8QNFRxVZCeWCT0JXUxGTEuBAZtXQawMHHyRMN3XAK8UAOxNNLlKQ2GDhZy MXMjGWz9PvJuWKIjWAGdfb9OJBFaMLSzFGh8GYGbRW QbTYEcNRfsWCPaAOCbBTy5KWWrIMLfLI4EQlXsCVOnAXB7ARSiHOMkGPJgff5IMPRlGGDfZRZoYHAgNB KsFYNrPNfaJIYoIAB9XEw7CTDnCGBeUS8LVkImAYGhCSNcRZNaOAIaQBIjew0AYSRdLIWeFzQ6DVAdUP IrQZUeCWueYQPzGPU0IyIuUSAcTERwRR5JDiVcFHFr THr5HsNzSGChIZSgnd2ZMUIpYEEeBQP3OsEcPWOcBBYpIDwdIWVxVTU7QXm8PIXbFIOqYD7YDhJvJDNe XBf4ZeTdWLImJCPxwr1QLSBuSGRiESWwYrQuMHBeKMSkXGxlYSZkAHXfQXJ8KONpEUQlRQ2CKcBmEXWv SyM2YsjmBNYhWAPxlt2FGADjVJLvXFg0UmDyDJBxFE AuGBisMLXqHQOpEIYkOJMrAZVrJB3VUwVcBNLrCyQyKdpmWMHdWDWcui3YNIBdKKBtHfI9BKKlHTQsTH GwNQziDTDuWUZxRNYbVKPaPTFaSK0MHjQfIMFkEaT9IeHuKWPxKCKhkh9EBLGvNBCxKPSxBPTyXFVwNE NwQHjcQIBnRHJ3Trt4YOPoOAJeKL0IOxApORXyNaC7 VXirMQKuMJBntw8LkHLiaZmthp5FBZoDVm6DvDslXDYgPSrnPf6gkMEgYfJnUEMOYt1XcoTzYFUtAORD ZYhqYKXlQKOaXSX8BGQdVNJaLHLwP3SqISF3TZS6SBNaIYQvLbL3OvR3CiWiRCjdH6EfT0KdM4KrUhC0 TKOzJyDtNAF2WuO5ZAU+AC8oJPt+Rm4Gn7PmzgU7ufKcJMonTVl6RZ2ZPXRRV2ZVSi== ID Date Data Source [id number] 05/03/2019 08:33:05 AM EDT [facility] Name Value Range Interpretation Code Description Data Shanon rce(s) Supporting Document(s) Progress Note [facility] HABHFv2aAaENQuRm44/CBGqlFRFpp9SbGDwtVAq1JJfuCDCyS5ZxSKI4bA4kKTA7GEeKHrArRuMuRkEz lbm [file] ICAgICAgICAgICAgICAgICAgICAgICAgICAgICAgIC AgICAgICAgICAgICAgICAgICAgICAgICAgICAgICAgICAgICAgICAgICAgICAgICANCiAgICAgICAgIC AgICAgICAgICAgICAgICAgICAgICAgICAgICAgICAgICAgICAgICAgICAgICAgICAgICAgICAgICAgIC AgICAgICAgICAgICAgICAgICAgICAgICAgICAgICAN CiAgICAgICAgICAgICAgICAgICAgICAgICAgICAgICAgICAgICAgICAgICAgICAgICAgICAgICAgICAg ICAgICAgICAgICAgICAgICAgICAgICAgICAgICAgICAgICAgICAgICANCiAgICAgICAgICAgICAgICAg ICAgICAgICAgICAgICAgICAgICAgICAgICAgICAgIC AgICAgICAgICAgICAgICAgICAgICAgICAgICAgICAgICAgICAgICAgICAgICAgICAgICANCiAgICAgIC AgICAgICAgICAgICAgICAgICAgICAgICAgICAgICAgICAgICAgICAgICAgICAgICAgICAgICAgICAgIC AgICAgICAgICAgICAgICAgICAgICAgICAgICAgICAg ICANCiAgICAgICAgICAgICAgICAgICAgICAgICAgICAgICAgICAgICAgICAgICAgICAgICAgICAgICAg ICAgICAgICAgICAgICAgICAgICAgICAgICAgICAgICAgICAgICAgICAgICANCiAgICAgICAgICAgICAg ICAgICAgICAgICAgICAgICAgICAgICAgICAgICAgIC AgICAgICAgICAgICAgICAgICAgICAgICAgICAgICAgICAgICAgICAgICAgICAgICAgICAgICANCiAgIC AgICAgICAgICAgICAgICAgICAgICAgICAgICAgICAgICAgICAgICAgICAgICAgICAgICAgICAgICAgIC AgICAgICAgICAgICAgICAgICAgICAgICAgICAgICAg ICAgICANCiAgICAgICAgICAgICAgICAgICAgICAgICAgICAgICAgICAgICAgICAgICAgICAgICAgICAg ICAgICAgICAgICAgICAgICAgICAgICAgICAgICAgICAgICAgICAgICAgICAgICANCiAgICAgICAgICAg ICAgICAgICAgICAgICAgICAgICAgICAgICAgICAgIC AgICAgICAgICAgICAgICAgICAgICAgICAgICAgICAgICAgICAgICAgICAgICAgICAgICAgICAgICANCj w/pGGoK5cmsMTvdpE8S4tyZj4NHk1FVY0zs5TyVJWjJDglhkTaEvnLKsEySABoRogCJjt9TPpdRX8PmD XfK0FoL4AkWMxqIT9WAZJpNRTltZWdZDXqIKYmMwH9 IMLnABtnJH0ZoQUgJAxlZGWoIEUtDuTlJUNmATBzWGZeLTOlKXJVTJLoEQBiOmBpIVSoPLGmZD1ZYUWk Q683cdOzJu7MPv8RLvXmVG0smq1UCgEmVSLxKqqPEns4XJxzMD7KcHPrcPYtYlYmQREZRuXkU4ysz3Qi JwNzRFYMAQovAO1Ga3GqnZAoNGe+Kf9DVR8vd7VrCQ xzMoVdGP8uix8BDHbTOcZnV6WkzSjmKXPxo0mlDRSjBT7bqAQoMTT1RUOwhY5jLZ9hbGJjAUjxwvfzOY EoOURwRt14LsYpBmMcWME0TQFhQQ0pJNujAC7IJGK0YPusDLLiXZFsY9oTHkKjXBNoBtYctQqzWC8NAq TrG3HidgKsrNCnSsZgHWEZUs8+DQplbmRvYmoNCjM0 DXFtw0VpTXc3CS2ZIWPmHIkkHP3BYXElsU7cFLgiLZ0UMlCkFPYrRZHYIfRvS58ubTCyXDh4Q8WtCaUl ZGVkRmlsZXMgPDwvTmFtZXMgWyBdDQogID4+ID4+FXdkYN9DFHjuyrGqYVNsRs8ZMXDlXLUlPB3jOAGi WXPmB9K2zGkdVTPPGzUxO8wtojtmHE8tYNWoA233oT okekJqOSLmOUKhDz8QRWSfYAN2CFCasOCdNuQaXJVYGPaeWU3JlMFrBIT1uD8sAJpfZTOjLUOvZ3yDGm EedZzrRC91kSzuobXffVNkHWl+Ps4QLW8nw3CbPIb2hyPaDItnRKV0CAhmSPVzYUPrFDIxDIG7OTK6VJ ZQKpUaNDLkZAIcOXpmBSPvUZXpfw7XVYDbQBTvFgB9 RpQfHTLrHPBeJCjvQODbVYF7KJb7MXEjBDOqNR4AMdUgJJCqYYYwWAxfYWEjGQUawj3GIJMhDTEjAuP9 UMWoJUQbBEMnKYctVPEoUMCyRsFeKSEnPMSyQJ9WMiFrJJZdGRP5YUBdSDKzLQGntl2PESRuHYIpAoay YUEfVFHmNILvPXouFRQiICJ2BxZ9MDNiERSmXQ9CDs ScIKJpLSt0JWRfIFQmYCOsyp4YQJGaOKJaJpH2LOTaEPRhJTUkDMsvWQHfRXBnRWn6YSYzGCGxVZ0MJp RbEBLhTCChPpDxLIWwPURfnb5GGWWyROTpSMU9UcHkSRMnAPTdQPffXVAlFWF1Nbf3MMBeBNWiAE7KTc NrINWgQKR6KCSeLMEkWBFtry5HLLKuLFLgPae8BlAz ERYxLXSnPTmzNRUyHSE6MSE1OPYiNOYaRM6YUvIjQLLmENsdTkBtNZJfORUlfi6VLULsFDGaNTE9KDAo SVOpWXTnFGnvLTGkUYL6KZgdIBAkLHTfYU2RBrLnHKCbMDq5NwRdGKFfEDFulq6YIQIvFMHaJRPeSPJt KZMbHVRkSRjxCZZrWBHxJRY0JCTuMFGaPT7WYsJoHM SgTaX9RlBvDAAmLATmrl8OTZSoXBDuTQp5RENzVKAeJKRtITuyJREvMOPxQBBmPBLqFCUfPX8LFeQjTC PxNdB4HvSxLKQeJAOiso0HUAQmDXKaZhY7VcNoNWWfFHBrZUehYMIkULUbUfQzDPZePBFdVX0YYhRbOQ DwNwJ2BRhjGOTdPIYchj7BZMMkLQAvSTUwKOWcPLBs AYAkZLyaIWVvJGL5YdRlZSTaWLOoHK7MFzEyVEUqJyO8LRemYZIePWVsiz3ImHYkqMepkv0TIPbDXv5W zUafDEK7KNckQp0qsBIgBPNkWMTPIy7MltEtHULuZTNTWGfqWAPwJNAzIGZ8LoWmInO1LVDmK0ExBaEf FgS2PkWaVIi9FkV3PrP5OQGlNjv5SdTqAVkeKFTlFC IzNTFiMjZiZDNhODYzNDY+FR3nFSe+Jq2Pz9YgeoH5luSiYTmqLFE1Eh5XOUIGV8DAPt== ID Date Data Source [id number] 03/30/2019 07:49:57 AM EST [facility] Name Value Range Interpretation Code Description Data Shanon rce(s) Supporting Document(s) Progress Note [facility] ZUSRMs0nNgMFQzWn08/QZAyfWUEwi9OoFZeyRCq9PWwbBASoE3SrZUO6hY5fBXK4JYhDQmXjCeEbJxX1 m HgVmmRFyOoVZRgPukZWnZpEDizKhztuZThRY7KdCP5CAEcE53rBBMmBDRcA8JpWWG7SFM+Vt5VOCCynX BuHX8HPrmB8S0YhnpONZ9ChW/NIYRXWjfAGW7yJKpCJxz8dd8cLLjb4bbE3zAxBYNlHn/ya/ISN0pB4M dswLGgnbGcXOfPZeV1NLi39L4tCif43x+3NwNR81rB /0tst7Cfl7b4el+i5TJxxwdr/yc5PUBlS5tdNvJ7g+d+OeHZhdo/eGURKC91o3ZWjaBcPF9lEH74Kb6+ rC4+YEl8j1PWDNpEnQvvoDHD7CcXG0McFTyYWTVUMYU1YpjRZX21HIvlGADi4wFHL3XYl0eBSa6/Parvin [file] ICAgICAgICAgICAgICAgICAgICAgICAgICAgICAgICAgICAgICAgICAgICAgICAgICAgICAgICAgICAg ICANCiAgICAgICAgICAgICAgICAgICAgICAgICAgIC AgICAgICAgICAgICAgICAgICAgICAgICAgICAgICAgICAgICAgICAgICAgICAgICAgICAgICAgICAgIC AgICAgICAgICAgICANCiAgICAgICAgICAgICAgICAgICAgICAgICAgICAgICAgICAgICAgICAgICAgIC AgICAgICAgICAgICAgICAgICAgICAgICAgICAgICAg ICAgICAgICAgICAgICAgICAgICAgICANCiAgICAgICAgICAgICAgICAgICAgICAgICAgICAgICAgICAg ICAgICAgICAgICAgICAgICAgICAgICAgICAgICAgICAgICAgICAgICAgICAgICAgICAgICAgICAgICAg ICAgICANCiAgICAgICAgICAgICAgICAgICAgICAgIC AgICAgICAgICAgICAgICAgICAgICAgICAgICAgICAgICAgICAgICAgICAgICAgICAgICAgICAgICAgIC AgICAgICAgICAgICAgICANCiAgICAgICAgICAgICAgICAgICAgICAgICAgICAgICAgICAgICAgICAgIC AgICAgICAgICAgICAgICAgICAgICAgICAgICAgICAg ICAgICAgICAgICAgICAgICAgICAgICAgICANCiAgICAgICAgICAgICAgICAgICAgICAgICAgICAgICAg ICAgICAgICAgICAgICAgICAgICAgICAgICAgICAgICAgICAgICAgICAgICAgICAgICAgICAgICAgICAg ICAgICAgICANCiAgICAgICAgICAgICAgICAgICAgIC AgICAgICAgICAgICAgICAgICAgICAgICAgICAgICAgICAgICAgICAgICAgICAgICAgICAgICAgICAgIC AgICAgICAgICAgICAgICAgICANCiAgICAgICAgICAgICAgICAgICAgICAgICAgICAgICAgICAgICAgIC AgICAgICAgICAgICAgICAgICAgICAgICAgICAgICAg ICAgICAgICAgICAgICAgICAgICAgICAgICAgICANCiAgICAgICAgICAgICAgICAgICAgICAgICAgICAg ICAgICAgICAgICAgICAgICAgICAgICAgICAgICAgICAgICAgICAgICAgICAgICAgICAgICAgICAgICAg ICAgICAgICAgICANCjw/xIUdX1pphNGjdrC0S7zjFj 9BWs2PSS8xf5JcZSLgVTuckaSaRwvQNhYgPHXaNqfMNkt4SWkrDE5YqBBxM9EgG7RdIGjkSZ6KAEYiWQ PbaZDgMLWfTMKoHhQ7RKLfWHgoZQ2TpHZxOVjbQUQsGMWtQwYpBXNsNWJzIUYgUFJzWQJSUASaNLXsJz SkQMZeFXCxEQdiFMOXZK7HMaJxW6VmcH30RPoXRz7+ RMsyrtOkWzfHBpD6CFDes1RuALn4XZ2LRUMrYaxbs3IvOdPpAUMYBFspDM3UZJU9PJQ9WGJfWp9UTOUx L654ofNfBK7EFg2GZfAmZA0zkf4LInLvGKFqSpkTCnm9OStkFB2EqXOtWHeJvi9optXvnlTXv7FhtoOu eMFTaLmhcPJlD4ngpetqLKQhKHSlEo23RtXbIhPaZW Q1RFMaSI9eLNcfAM5PSZU1PNlcRUPrIDCrC3qSGfXlHTHcQOAxuDilHD6EKeFeV5RaqeDgvAQePCTeMM INCj4+QUggqaIgQadPNwV2FOXvt3HcVGu5IW6MGVIuDVgjZP7ZXCHugD3qABcnPE6UVtFpDqVzJUWUPk SoC47gkCAxNBv4E9QiWqAoBBJyBdkiIIDtKLegUxCr ZXMgWyBdDQogID4+ID4+MBuxSS7RRLbdrlEzSOGxOf8OEHEzTZSgZH5pTJSdNVLwL0W8yEygFCAUUeHy D2shfzjpUN4vYPAmL812kZubhmZuVHF5MWGeTg1EMLUmFMU7XJWzrVBoJrYpKFDCWRlfIS0PbCWaXVJ1 xU1mKOsxBASlWOXlZ1pSScHqnPtaUR58qGnypxYsuM BdDQo+Zn8ZRI6jz2QtWJh8nrTkJGnaDRL1LJqqGYUkSXKtWFYgXAU2SKI6LSBCGqCmINHwMPMqMEypDV OuNUGnks0RMUArGLEkNcIsHyMfCMIsFKXwCKawYXMqELL3LqFfCYQpQLGtVR1KKjTjEAHeSFZmADaoCT NyVJCjtt2TUNZlOWDyGoaiGjZsARQcXVAiWQgcAGTq HYMzCMX4NJYtHGKaWM0MAfPzZYMlGWv7WkQrJOTyVKKtrr0WZSZzEJLlIue3LNQkLKLaXSTgTHyfNEFy WBIlQNt3LRCnOUNkCF7ALpVaFTLhVTM2EMByULDhIQTggl8XYMKtROYsGlAsOiRaXBArOHBnJUmnWRXv ABRtKeC5UJHoMGGkZO7YVnVjCTNiUBhkPnThWOUiWP Mrjl8UUYBqBZIeKxBiOKYtAUYmRCLfFSenTVRcUNI0KNk7IPQyYNKbYH6WJoIjWBPbBLw9AULyCUJrJP Mbmm0QUNYgQWDvHUj2JQUzISZoERMrHRttQYDyUOCaNFE3VKEkSCHyQJ7RPgQbZYWvIhKxJGHhUSYxHJ Pdfc4HAGCtANUoFyTbEnHqNJHwISAfJZhmIYLfXNHc KMg1QSIwIAQhEO9DPuIrRZRsEiN2GYGgRGYhNSNwiw6SVDPhNIIhXkU5XsUmARDeNNYiZWeqTMRkJHCk TQD0FMSePPGuPS6GTnPjHXJyEbToKlGcLUJbCPWrrh1GDGQzGZItYWR9STQmURVtBIOuZHeaYEHaLTQ7 Fhu6NKZlIDMrOP2DMdOjXJXkDtIiQYudPFCwWEImcl 2QTBKbRFKtPbY2BEJtIWKpRBNoUDoiDYEmXUO4TAS7FVUzQFBxNK3MQtVeOYDeQxgvAbznQAYmYLYnsk 5VCWNgGMZbZqNtRRFtZRTpOQFdJQkeOBMsENK8DDInFUFrLMQdAL5DGfCfJSYjPmy1IBZtBKVxNKEkzp 3QROMjFQZjEIQ4GFIyAIJtYDSeZTgaSSYvQAF9BtY4 WFKqSOCqRF2WDgDnUMspSYSWRew4PXpqR4g6XLVjSa2IZ2Nqr3TbBkYmHAIXBUmbPI6kztRvVBDdHn7A Z3rKBaisJUO7FYLdWsC0GqFqMlXtTIShPvScBnGzQjNrFHAgEG2sPNK7HdCbWdF0TFRvMhEtLgUeKkGt OQHjApE9EbG4IAN8GcIePY4GAp7QOkP1NGT8dFNnYa6TMma4NoJFAlWcVJ3OQQi= Procedure Social History Code Duration Value Status Description Data Source(s ) Alcohol intake 09/19/2019 12:00:00 AM EDT Current non-d fidelia of alcohol (finding) completed Current non-drinker of alcohol (finding) [facility] Tobacco use and exposure 09/19/2019 12:00:00 AM EDT Former user co mpleted Former user [facility] Cigarette pack-years 09/19/2019 12:00:00 AM EDT UNK completed [facility] Cigarettes smoked current (pack per day) - Reported 09/19/19 12:00:00 AM EDT UNK completed [facility] Smoking 09/19/2019 12:00:00 AM EDT Current every day smoker co mpleted Current every day smoker [facility] Alcohol intake 09/16/2019 12:00:00 AM EDT Current non-d fidelia of alcohol (finding) completed Current non-drinker of alcohol (finding) [facility] Cigarette pack-years 09/16/2019 12:00:00 AM EDT UNK completed [facility] Cigarettes smoked current (pack per day) - Reported 09/16/19 12:00:00 AM EDT UNK completed [facility] Smoking 09/16/2019 12:00:00 AM EDT Current every day smoker co mpleted Current every day smoker [facility] Alcohol intake 08/11/2019 12:00:00 AM EDT Current non-d fidelia of alcohol (finding) completed Current non-drinker of alcohol (finding) [facility] Cigarette pack-years 08/11/2019 12:00:00 AM EDT UNK [facility] Cigarettes smoked current (pack per day) - Reported 08/11/19 12:00:00 AM EDT UNK completed [facility] Smoking 08/11/2019 12:00:00 AM EDT Current every day smoker co mpleted Current every day smoker [facility] Alcohol intake 07/20/2019 12:00:00 AM EDT Current non-d fidelia of alcohol (finding) completed Current non-drinker of alcohol (finding) [facility] Cigarette pack-years 07/20/2019 12:00:00 AM EDT UNK [facility] Cigarettes smoked current (pack per day) - Reported 07/20/19 12:00:00 AM EDT UNK completed [facility] Smoking 07/20/2019 12:00:00 AM EDT Current every day smoker co mpleted Current every day smoker [facility] Alcohol intake 06/23/2019 12:00:00 AM EDT Current non-d fidelia of alcohol (finding) completed Current non-drinker of alcohol (finding) [facility] Cigarette pack-years 06/23/2019 12:00:00 AM EDT UNK [facility] Cigarettes smoked current (pack per day) - Reported 06/23/19 12:00:00 AM EDT UNK completed [facility] Smoking 06/23/2019 12:00:00 AM EDT Current every day smoker co mpleted Current every day smoker [facility] Alcohol intake 05/02/2019 12:00:00 AM EDT Current non-d fidelia of alcohol (finding) completed Current non-drinker of alcohol (finding) [facility] Cigarette pack-years 05/02/2019 12:00:00 AM EDT UNK [facility] Cigarettes smoked current (pack per day) - Reported 05/02/19 12:00:00 AM EDT UNK completed [facility] Smoking 05/02/2019 12:00:00 AM EDT Current every day smoker co mpleted Current every day smoker [facility] Vital Signs ID Date Data Source UNK Name Value Range Interpretation Code Description Data Source(s) Oxygen saturation in Arterial blood by Pulse oximetry 98 % 98 % [facility] Body mass index (BMI) [Ratio] 19.57 kg/m2 19.57 kg/m2 [facility] Body weight 51.71 kg 51.71 kg [facility] Body height 162.6 cm 162.6 cm [facility] Respiratory rate 16 /min 16 /min [facility] Body temperature 36.67 [place] 36.67 [place] [facility] Heart rate 101 /min 101 /min [facility] Diastolic blood pressure 90 mm[Hg] 90 mm[Hg] [facility] Systolic blood pressure 132 mm[Hg] 132 mm[Hg] [facility] ID Date Data Source [id number] 11/03/2019 01:28:42 PM EDT [facility] Name Value Range Interpretation Code Description Data Source(s) WEIGHT RECORDED 115.2 lb 115.2 lb [facility] Body height Measured 64.17 in 64.17 in [facility] ID Date Data Source [id number] 09/19/2019 11:49:00 AM EDT [facility] Name Value Range Interpretation Code Description Data Source(s) WEIGHT RECORDED 109 lb 109 lb [facility] Body height Measured 64.17 in 64.17 in [facility] ID Date Data Source [id number] 08/11/2019 04:59:55 PM [facility] Name Value Range Interpretation Code Description Data Source(s) WEIGHT RECORDED 109 lb 109 lb [facility] Body height Measured 64.17 in 64.17 in [facility] ID Date Data Source [id number] 07/23/2019 01:20:18 PM [facility] Name Value Range Interpretation Code Description Data Source(s) WEIGHT RECORDED 104 lb 104 lb [facility] ID Date Data Source [id number] 07/06/2019 09:56:21 AM [facility] Name Value Range Interpretation Code Description Data Source(s) WEIGHT RECORDED 112.4 lb 112.4 lb [facility] Patient Treatment Plan of Care Planned Activity Planned Date Details Description Data Source (s) Acetic Acid 20 MG/ML Otic Solution 11/10/2019 12:00:00 AM [facility] ferrous sulfate 325 MG Oral Tablet 09/16/2019 12:00:00 AM [facility] Folic Acid 1 MG Oral Tablet 09/16/2019 12:00:00 AM [facility] Multivitamins Oral Capsule 09/16/2019 12:00:00 AM [facility] Mirtazapine 45 MG Oral Tablet 09/16/2019 12:00:00 AM [facility] 24 HR Fexofenadine hydrochloride 180 MG / Pseudoephedrine Hydrochloride 240 MG Extended Release Oral Tablet 09/16/2019 12:00:00 AM [facility] Albuterol Sulfate HFA 108 (90 Base) MCG/ ACT Inhalation Aerosol Solution (PROVENTIL HFA) 09/16/2019 12:00:00 AM [facility] 12 HR cetirizine hydrochloride 5 MG / Ps eudoephedrine Hydrochloride 120 MG Extended Release Oral Tablet 08/12/2019 12:00:00 AM [facility] Azelastine HCl 0.1 % Nasal Solution (ASTELIN) 08/11/2019 12:00:00 A M [facility] 24 HR Fexofenadine hydrochloride 180 MG / Pseudoephedrine Hydrochloride 240 MG Extended Release Oral Tablet 08/11/2019 12:00:00 AM [facility] Albuterol Sulfate HFA 108 (90 Base) MCG/ ACT Inhalation Aerosol Solution (PROVENTIL HFA) 08/11/2019 12:00:00 AM [facility] 24 HR Nicotine 0.875 MG/HR Transdermal Patch 08/11/2019 12:00:00 AM [facility] Levofloxacin 500 MG Oral Tablet 07/20/2019 12:00:00 AM [facility] Loratadine 10 MG Oral Tablet 05/02/2019 12:00:00 AM [facility] carbamide peroxide 65 MG/ML Otic Solution 05/02/2019 12:00:00 AM [facility] Folic Acid 1 MG Oral Tablet 03/29/2019 12:00:00 AM [facility] Multivitamins Oral Capsule 03/29/2019 12:00:00 AM [facility] Mirtazapine 45 MG Oral Tablet 03/29/2019 12:00:00 AM [facility] Fluticasone Propionate 50 MCG/ACT Nasal Suspension (FL ONASE) 03/29/2019 12:00:00 AM [facility] Loratadine 10 MG Oral Tablet 03/29/2019 12:00:00 AM [facility] Mirtazapine 45 MG Oral Tablet 01/31/2019 12:00:00 AM [facility] fluticasone (FLONASE) 50 MCG/ACT nasal spray 11/12/2018 12:00:00 AM [facility] Loratadine 10 MG Oral Tablet 11/12/2018 12:00:00 AM [facility] Multiple Vitamin (MULTIVITAMIN) capsule 11/12/2018 12:00:00 AM [facility] Hydrocortisone 5 MG/ML Topical Cream 04/27/2018 12:00:00 AM [facility] ferrous sulfate 325 MG Oral Tablet 12/02/2017 12:00:00 AM [facility] FOLIC ACID [facility]
[2020-04-16] MEDS ORDERED: FOLI400T PO (09:15)
[2020-04-16 11:10] VITALS: BP 140/88
[2020-04-16] MEDS ORDERED: AFRI0.058 (11:15)
[2020-04-16] MEDS ORDERED: MUCI600T31 PO (11:15)
== END 2020-04-16 11:24 | disposition home or self-care (01) ==
LOC: M ED 09:07
DX: R09.81 Nasal congestion (principal); R19.7 Diarrhea, unspecified; F43.0 Acute stress reaction; F17.200 Nicotine dependence, unspecified, uncomplicated; Z79.899 Other long term (current) drug therapy
CPT/HCPCS: 99283; U0003

== ENCOUNTER 2022-01-26 14:45 | Emergency (ER) | payer OTHER ==
[~2022-01-26] VITALS: Ht 162.6 cm; Wt 53.2 kg
[~2022-01-26 14:45] MED LIST changes: +FOLI400T13 PO; +MUCI600T31 PO; +OXYM15SP2
[2022-01-26] MEDS ORDERED: CENTCHW4 PO (15:10)
[2022-01-26 15:14] VITALS: BP 119/80
== END 2022-01-26 17:30 | disposition home or self-care (01) ==
LOC: M ED 14:45 → EDBD 14:45 → M ED 17:30
DX: S06.0XAA Concussion with loss of consciousness status unknown, initial encounter (principal); T14.8XXA Other injury of unspecified body region, initial encounter; Y04.0XXA Assault by unarmed brawl or fight, initial encounter; Y92.009 Unspecified place in unspecified non-institutional (private) residence as the place of occurrence of the external cause; F17.200 Nicotine dependence, unspecified, uncomplicated; J32.9 Chronic sinusitis, unspecified

== ENCOUNTER 2023-11-02 02:34 | Emergency (ER) | payer OTHER, SELFPAY ==
[~2023-11-02] VITALS: Ht 162.6 cm; Wt 52.2 kg
[2023-11-02 02:34] VITALS: BP 139/86; TEMP 97.6; O2SAT 98
[2023-11-02] MEDS ORDERED: APAP325T4 PO (02:41)
== END 2023-11-02 06:59 | disposition home or self-care (01) ==
LOC: M ED 02:34
DX: F43.0 Acute stress reaction (principal); F41.1 Generalized anxiety disorder; F32.A Depression, unspecified; F17.200 Nicotine dependence, unspecified, uncomplicated